=== PATIENT | female | born 1960 | race Caucasian/White ===

== ENCOUNTER 2020-09-03 08:40 | Outpatient (REF) | payer BC, SELFPAY ==
--- NOTE | 2020-09-03 | MM_ITS ---
EXAMINATION: MM SCREENING DIGITAL BREAST TOMOSYNTHESIS, BILATERAL CLINICAL INFORMATION: Screening. Asymptomatic. The lifetime risk of breast cancer based on the Tyrer-Cuzick Model is 5.7%. COMPARISON: Mammography: June 15, 2019 and studies dating back to November 12, 2011 TECHNIQUE: Digital breast tomosynthesis is performed in both the craniocaudal and mediolateral oblique views along with computer-aided detection (CAD). Synthesized 2D images are generated from the tomosynthesis. FINDINGS: The breasts are heterogeneously dense, which may obscure small masses (ACR BI-RADS breast composition Category c). There are no significant masses, abnormal calcifications, or other abnormalities. MM/MM tomosynthesis screening BI IMPRESSION: There are no significant changes from prior study. ASSESSMENT: BI-RADS 1: Negative RECOMMENDATION: Routine annual mammography screening. This patient's information was entered into a reminder system with a target due date for their next mammogram.
== END 2020-09-03 08:41 | disposition home or self-care (01) ==
LOC: HO.MAMMO 08:40
PROVIDERS: PCP Internal Medicine; Visit Provider Internal Medicine
DX: Z12.31 Encounter for screening mammogram for malignant neoplasm of breast (principal)
CPT/HCPCS: 77063; 77067

== ENCOUNTER 2020-11-23 11:35 | Outpatient (REF) | payer BC, SELFPAY ==
[2020-11-23 13:31] LABS: MANUAL DIFF FLAG NO
[2020-11-23 13:36] LABS: Basophils Absolute Auto 0.1 X10*3/uL (0.0-0.2); Basophils Percent Auto 0.9 % (0-2); Eosinophils Absolute Auto 0.1 X10*3/uL (0.0-0.4); Eosinophils Percent Auto 2.1 % (0-4); Hematocrit 41.9 % (37-47); Hemoglobin 13.6 g/dl (12.0-16.0); Imm Gran Abs Auto 0.01 X10*3/uL (0.00-0.03); Imm Gran Pct Auto 0.2 % (0.0-0.4); Lymphocytes Absolute Auto 1.8 X10*3/uL (1.2-4.9); Lymphocytes Percent Auto 31.6 % (20-40); Mean Corpuscular HGB Conc 32.5 g/dl (31.0-35.0); Mean Corpuscular Hemoglobin 30.1 pg (27.0-33.0); Mean Corpuscular Volume 92.7 fL (80-98); Mean Platelet Volume 11.8 fL (9.4-12.3); Monocytes Absolute Auto 0.5 X10*3/uL (0.1-1.2); Monocytes Percent Auto 8.2 % (2-11); Neutrophils Absolute Auto 3.2 X10*3/uL (2.0-8.3); Platelet Count 234 X10*3/uL (160-400); Red Blood Count 4.52 X10*6/uL (4.20-5.50); Red Cell Distribution Width 11.4 % (11.0-16.0); White Blood Count 5.6 X10*3/uL (4.8-10.8)
[2020-11-23 13:47] LABS: Estimated Average Glucose 301 mg/dL; Hemoglobin A1c % 12.1 %
[2020-11-23 14:00] LABS: Alanine Aminotransferase 23 U/L (0-31); Albumin Level 4.5 g/dL (3.5-5.0); Alkaline Phosphatase 78 U/L (39-117); Anion Gap 14 (12-20); Aspartate Amino Transferase 16 U/L (5-31); Bilirubin Total 1.1 mg/dL (0.0-1.0); Blood Urea Nitrogen 18 mg/dL (9-16); Calcium 9.9 mg/dL (8.4-10.2); Carbon Dioxide 28 mmol/L (22-29); Chloride 103 mmol/L (96-108); Cholesterol 220 mg/dL; Estimated Glomerular Filt Rate > 60; Glucose Fasting 267 mg/dL (60-99); HDL Cholesterol 81 mg/dL; LDL Cholesterol Calculated 125 mg/dl; Potassium 4.7 mmol/L (3.3-5.1); Sodium 140 mmol/L (135-145); Total Protein 7.1 g/dL (6.5-8.0); Triglycerides 72 mg/dL
[2020-11-23 14:21] LABS: Free T4 (Free Thyroxine) 1.11 ng/dL (0.71-1.85); Thyroid Stimulating Hormone 0.12 uIU/mL (0.32-4.0)
[2020-11-23 14:34] LABS: Creatinine Urine 98.61 mg/dL; Microalbum/Creatinine Ratio Ur 37.5 ug/mg cr
== END 2020-11-23 11:36 | disposition home or self-care (01) ==
LOC: HO.10HDL 11:35
PROVIDERS: Visit Provider Internal Medicine
DX: E11.9 Type 2 diabetes mellitus without complications (principal); E03.9 Hypothyroidism, unspecified; E78.00 Pure hypercholesterolemia, unspecified
CPT/HCPCS: 36415; 80053; 80061; 82043; 83036; 84439; 84443; 85025

== ENCOUNTER → 2021-01-21 07:44 | Outpatient (BNVA) | payer BC, SELFPAY | PROVIDERS: PCP Internal Medicine; Visit Provider Nurse Practitioner Gerontology | DX: E11.65 Type 2 diabetes mellitus with hyperglycemia (principal); E78.00 Pure hypercholesterolemia, unspecified | CPT/HCPCS: 82947 ==

== ENCOUNTER → 2021-02-25 13:49 | Outpatient (BNVA) | payer BC, SELFPAY | PROVIDERS: PCP Internal Medicine; Visit Provider Nurse Practitioner Gerontology | DX: E11.65 Type 2 diabetes mellitus with hyperglycemia (principal); E78.5 Hyperlipidemia, unspecified; E03.9 Hypothyroidism, unspecified; E78.00 Pure hypercholesterolemia, unspecified; Z79.4 Long term (current) use of insulin | CPT/HCPCS: 82947 ==

== ENCOUNTER 2021-02-26 06:36 | Outpatient (REF) | payer BC, SELFPAY ==
[2021-02-26 07:51] LABS: Anion Gap 13 (12-20); Blood Urea Nitrogen 21 mg/dL (9-16); Carbon Dioxide 31 mmol/L (22-29); Chloride 101 mmol/L (96-108); Estimated Glomerular Filt Rate > 60; Glucose Fasting 268 mg/dL (60-99); Potassium 4.6 mmol/L (3.3-5.1); Sodium 140 mmol/L (135-145)
[2021-02-26 07:55] LABS: Estimated Average Glucose 272 mg/dL; Hemoglobin A1c % 11.1 %
[2021-02-26 08:16] LABS: Free T4 (Free Thyroxine) 1.29 ng/dL (0.71-1.85); Thyroid Stimulating Hormone 1.08 uIU/mL (0.32-4.0)
[2021-02-27 20:17] LABS: C Peptide 0.77 ng/mL (0.80-3.85)
[2021-02-27 21:06] LABS: Thyroglobulin Antibodies 3 IU/mL (< or = 1); Thyroid Peroxidase Antibodies 1 IU/mL (<9)
[2021-03-02 18:16] LABS: Glutamic acid decarboxylase Ab <5 IU/mL (<5)
[2021-03-08 00:31] LABS: Islet Cell Antibody Screen NEGATIVE (NEGATIVE)
== END 2021-02-26 06:37 | disposition home or self-care (01) ==
LOC: HO.LAB 06:36
PROVIDERS: PCP Internal Medicine; Visit Provider Nurse Practitioner Gerontology
DX: E11.65 Type 2 diabetes mellitus with hyperglycemia (principal); E03.9 Hypothyroidism, unspecified
CPT/HCPCS: 36415; 80048; 83036; 84439; 84443; 84681; 86255; 86341; 86376; 86800

== ENCOUNTER → 2021-04-09 08:39 | Outpatient (BNVA) | payer BC, SELFPAY | PROVIDERS: PCP Internal Medicine; Visit Provider Nurse Practitioner Gerontology ==

== ENCOUNTER → 2021-07-11 08:14 | Outpatient (BNVA) | payer BC, SELFPAY | PROVIDERS: PCP Internal Medicine; Visit Provider Nurse Practitioner Gerontology | DX: E11.65 Type 2 diabetes mellitus with hyperglycemia (principal); E78.00 Pure hypercholesterolemia, unspecified; E03.9 Hypothyroidism, unspecified | CPT/HCPCS: 82947; 83036 ==

== ENCOUNTER → 2021-09-11 13:45 | Outpatient (BNVA) | payer OTHER, SELFPAY | PROVIDERS: PCP Internal Medicine; Visit Provider Physician Assistant | DX: S89.91XA Unspecified injury of right lower leg, initial encounter (principal); S69.91XA Unspecified injury of right wrist, hand and finger(s), initial encounter; W00.2XXA Other fall from one level to another due to ice and snow, initial encounter | CPT/HCPCS: 73110; 73564; 99203 ==

== ENCOUNTER → 2021-09-13 15:07 | Outpatient (BNVA) | payer OTHER, SELFPAY | PROVIDERS: PCP Internal Medicine; Visit Provider Physician Assistant | DX: S69.91XA Unspecified injury of right wrist, hand and finger(s), initial encounter (principal); S89.91XA Unspecified injury of right lower leg, initial encounter; W00.0XXA Fall on same level due to ice and snow, initial encounter | CPT/HCPCS: 99213 ==

== ENCOUNTER 2021-09-16 15:28 | Outpatient (REF) | payer BC, SELFPAY ==
--- NOTE | ~2021-09-16 | MM_ITS ---
EXAMINATION: MM SCREENING DIGITAL BREAST TOMOSYNTHESIS, BILATERAL CLINICAL INFORMATION: Screening. Asymptomatic. The lifetime risk of breast cancer based on the Tyrer-Cuzick Model is 5%. COMPARISON: Mammography: 09/03/2020, 06/15/2019, 06/01/2018 TECHNIQUE: Digital breast tomosynthesis is performed in both the craniocaudal and mediolateral oblique views along with computer-aided detection (CAD). Synthesized 2D images are generated from the tomosynthesis. FINDINGS: The breasts are heterogeneously dense, which may obscure small masses (ACR BI-RADS breast composition Category c). Parenchymal pattern is similar to prior exams. There is biopsy clip marker again seen posterior 3:00 left breast adjacent to stable nodule. There is also a biopsy clip marker mid upper inner left breast with stable scarring. Neither breast shows interval mass or architectural abnormality or developing density. Scattered parenchymal asymmetries are similar to prior studies. The axilla and skin contours are unremarkable. MM/MM tomosynthesis screening BI IMPRESSION: No significant changes from prior exams. ASSESSMENT: BI-RADS 2: Benign RECOMMENDATION: Routine annual mammography screening. This patient's information was entered into a reminder system with a target due date for their next mammogram.
== END 2021-09-16 15:29 | disposition home or self-care (01) ==
LOC: HO.MAMMO 15:28
PROVIDERS: PCP Internal Medicine; Visit Provider Internal Medicine
DX: Z12.31 Encounter for screening mammogram for malignant neoplasm of breast (principal)
CPT/HCPCS: 77063; 77067

== ENCOUNTER → 2021-09-17 12:50 | Outpatient (BNVA) | payer OTHER, SELFPAY | PROVIDERS: PCP Internal Medicine; Visit Provider Physician Assistant | DX: S80.01XA Contusion of right knee, initial encounter (principal); S60.211A Contusion of right wrist, initial encounter; W00.0XXA Fall on same level due to ice and snow, initial encounter | CPT/HCPCS: 73200; 99213 ==

== ENCOUNTER → 2021-10-01 13:12 | Outpatient (BNVA) | payer OTHER, SELFPAY | PROVIDERS: PCP Internal Medicine; Visit Provider Physician Assistant Medical | DX: S83.91XD Sprain of unspecified site of right knee, subsequent encounter (principal); S63.501D Unspecified sprain of right wrist, subsequent encounter; W00.9XXD Unspecified fall due to ice and snow, subsequent encounter | CPT/HCPCS: 99213 ==

== ENCOUNTER → 2021-10-15 15:04 | Outpatient (BNVA) | payer OTHER, SELFPAY | PROVIDERS: PCP Internal Medicine; Visit Provider Physician Assistant Medical | DX: S63.501D Unspecified sprain of right wrist, subsequent encounter (principal); S63.591D Other specified sprain of right wrist, subsequent encounter; W00.0XXD Fall on same level due to ice and snow, subsequent encounter | CPT/HCPCS: 99213 ==

== ENCOUNTER 2021-10-24 08:30 | Outpatient (RCR) | payer OTHER, BC, SELFPAY ==
--- NOTE | 2021-09-26 16:19 | MHC.OT.OEV ---
[address] [phone] F: [phone] Occupational Therapy Evaluation Diagnosis: Right wrist sprain Date of Onset: 09/10/21 Date of Surgery: Attending Provider: Meme Stover PA-C Prescribed Treatment: Eval and treat. Custom splinting MD Follow Up Appointment: 10/01/21 History of Current Condition: Pt reports a FOOSH and right knee. [facility]en in [facility] the following day. XR neg for fx or dislocation. A brace was issued. Pt wearing at night . Not wearing during the day due to it feeling too big CT scan 09/17/21, neg for fx and dislocation. 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 Current Level of Function and Occupation Self Care, Employment, Leisure: Indep ADL doing heavy work, tight jars, vac.. heavy housework Severe difficult with prepping food Sleep: Wrist pain interrupts sleep, every other night Driving: WNL Vision: Balance: Pain Assessment Pain Score: 8 Pain Scale Used: Numeric (0 - 10) Pain Location and Description: 2-8 right ulnar wrist Achy Aggravating Factors: Wrist rotation, wrist extension, lifting with right Alleviating Factors: Skin and Soft Tissue Assessment Skin and Soft Tissue: Comments: Mild right ulnar styloid effusion Nerve assessment Ulnar Nerve: Not Tested Median Nerve: Not Tested Radial Nerve: Not Tested Comments: Sensory Assessment Temperature: Light Touch: WNL Proprioception: Vibration: Comments: Edema Assessment Upper Extremity: WNL Lower Extremity: Comments: Dexterity Assessment Dexterity: WNL Comments: Special Tests Comments: AROM(PROM) Strength Cervical Cervical Flexion: Cervical Extension: Cervical Lateral Flexion: Cervical Rotation: Comments: Shoulder Flexion: Extension: Abduction: Internal Rotation: External Rotation: Comments: WNL Flexion: Extension: Abduction: Internal Rotation: External Rotation: Comments: Elbow Flexion: Extension: Pronation: Supination: Comments: WNL Flexion: Extension: Pronation: Supination: Comments: Discomfort with forearm rotation end ranges Wrist Flexion: Extension: Ulnar Deviation: Radial Deviation: Comments: WNL Pain with right wrist ext at end range Flexion: Extension: Ulnar Deviation: Radial Deviation: Comments: Thumb Thumb CMC Flexion: Thumb MCP Flexion: Thumb IP Flexion: Radial Abduction: Palmar Abduction: [place] (Kapandji 0-10): Comments: WNL Digits Index MCP: PIP: DIP: Long MCP: PIP: DIP: Ring MCP: PIP: DIP: Small MCP: PIP: DIP: Comments: WNL Gross Grasp: R 40 lb L 45 lb Lateral Pinch: Two-Point Pinch: Three-Jaw Cheo: Comments: Right ulnar wrist pain with furniture finisher helper Dec pain with leukotape ulna support Patient Education Primary Language: Rectifying Operator Required: No Current Knowledge: Minimal, needs reinforcement Teaching Method: Verbal Education Needs Identified on Evaluation: ADL's Exercise Pain How did patient/family demonstrate learning? Patient demonstrates Patient verbalizes Barriers to Learning: None Readiness for Learning: Accepting Who was educated? Patient Comments: Pt reports she is available for OT 1x a wk only at this time Plan of Care Assessment: Pt is a 61 yo female 2 wks, 2 days s/p right wrist sprain due to a fall on black ice. 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 She reports a high level of pain at night at times radiating to her shoulder. She will benefit from some wrist support at work and is agreeable to trial taping and or use or and ulnar gutter splint fabricated today. AROM is normal. Strength is WFL. I anticipate con't improvement with pt plan to protect her wrist as able and con't OT one x a week. She is aware the [facility] is recommending OT 3x wk. STG Duration: 3 wks Short Term Goals: Dec pain at night to low with use of wrist support Demonstrate painfree forearm rotation and wrist ROM Right furniture finisher helper to > 45 lb Resume all homemaking activities with modifications as needed Quick DASH < 30 pts LTG Duration: 6 wks [facility] Goals: Use of wrist splint only for protection as needed Tolerate all work tasks with modifications as needed Painfree right furniture finisher helper >45 lb Quick DASH <15 pts Frequency and Duration: The patient will be seen 3x wk x 3 wks Treatment Plan: Therapeutic Exercise Therapeutic Activity Home Exercise Program Splinting Patient Education ADL Training Ultrasound Fluidotherapy Soft Tissue Mobilization Kinesiotaping Electronically Signed By: Laura Mccullough OT CHT CLT Reviewed/agree with student documentation: N/A Therapist: Please sign and return to therapist, Thank you for your referral.
--- NOTE | 2021-10-04 13:59 | MHC.OT.OEV ---
[address] [phone] F: [phone] Occupational Therapy Evaluation Diagnosis: Right wrist sprain Date of Onset: 09/10/21 Date of Surgery: Attending Provider: Meme Stover PA-C Prescribed Treatment: Eval and treat. Custom splinting MD Follow Up Appointment: 10/01/21 History of Current Condition: Pt reports a FOOSH and right knee. Seen in [facility] the following day. XR neg for fx or dislocation. A brace was issued. Pt wearing at night . Not wearing during the day due to it feeling too big CT scan 09/17/21, neg for fx and dislocation. 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 Current Level of Function and Occupation Self Care, Employment, Leisure: Indep ADL doing heavy work, tight jars, vac.. heavy housework Severe difficult with prepping food Sleep: Wrist pain interrupts sleep, every other night Driving: WNL Vision: Balance: Pain Assessment Pain Score: 8 Pain Scale Used: Numeric (0 - 10) Pain Location and Description: 2-8 right ulnar wrist Achy Aggravating Factors: Wrist rotation, wrist extension, lifting with right Alleviating Factors: Skin and Soft Tissue Assessment Skin and Soft Tissue: Comments: Mild right ulnar styloid effusion Nerve assessment Ulnar Nerve: Not Tested Median Nerve: Not Tested Radial Nerve: Not Tested Comments: Sensory Assessment Temperature: Light Touch: WNL Proprioception: Vibration: Comments: Edema Assessment Upper Extremity: WNL Lower Extremity: Comments: Dexterity Assessment Dexterity: WNL Comments: Special Tests Comments: AROM(PROM) Strength Cervical Cervical Flexion: Cervical Extension: Cervical Lateral Flexion: Cervical Rotation: Comments: Shoulder Flexion: Extension: Abduction: Internal Rotation: External Rotation: Comments: WNL Flexion: Extension: Abduction: Internal Rotation: External Rotation: Comments: Elbow Flexion: Extension: Pronation: Supination: Comments: WNL Flexion: Extension: Pronation: Supination: Comments: Discomfort with forearm rotation end ranges Wrist Flexion: Extension: Ulnar Deviation: Radial Deviation: Comments: WNL Pain with right wrist ext at end range Flexion: Extension: Ulnar Deviation: Radial Deviation: Comments: Thumb Thumb CMC Flexion: Thumb MCP Flexion: Thumb IP Flexion: Radial Abduction: Palmar Abduction: [place] (Kapandji 0-10): Comments: WNL Digits Index MCP: PIP: DIP: Long MCP: PIP: DIP: Ring MCP: PIP: DIP: Small MCP: PIP: DIP: Comments: WNL Gross Grasp: R 40 lb L 45 lb Lateral Pinch: Two-Point Pinch: Three-Jaw Cheo: Comments: Right ulnar wrist pain with fleece tier Dec pain with leukotape ulna support Patient Education Primary Language: Pearler Required: No Current Knowledge: Minimal, needs reinforcement Teaching Method: Verbal Education Needs Identified on Evaluation: ADL's Exercise Pain How did patient/family demonstrate learning? Patient demonstrates Patient verbalizes Barriers to Learning: None Readiness for Learning: Accepting Who was educated? Patient Comments: Pt reports she is available for OT 1x a wk only at this time Plan of Care Assessment: Pt is a 61 yo female 2 wks, 2 days s/p right wrist sprain due to a fall on black ice. 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 She reports a high level of pain at night at times radiating to her shoulder. She will benefit from some wrist support at work and is agreeable to trial taping and or use or and ulnar gutter splint fabricated today. AROM is normal. Strength is WFL. I anticipate con't improvement with pt plan to protect her wrist as able and con't OT one x a week. She is aware the [facility] is recommending OT 3x wk. STG Duration: 3 wks Short Term Goals: Dec pain at night to low with use of wrist support Demonstrate painfree forearm rotation and wrist ROM Right fleece tier to > 45 lb Resume all homemaking activities with modifications as needed Quick DASH < 30 pts LTG Duration: 6 wks Intermediate Goals: Use of wrist splint only for protection as needed Tolerate all work tasks with modifications as needed Painfree right fleece tier >45 lb Quick DASH <15 pts Frequency and Duration: The patient will be seen 3x wk x 3 wks Treatment Plan: Therapeutic Exercise Therapeutic Activity Home Exercise Program Splinting Patient Education ADL Training Ultrasound Fluidotherapy Soft Tissue Mobilization Kinesiotaping Electronically Signed By: Laura Mccullough OT CHT CLT Reviewed/agree with student documentation: N/A Therapist: Please sign and return to therapist, Thank you for your referral.
--- NOTE | 2021-10-24 09:09 | MHC.OT.DC ---
[address] [phone] F: [phone] Occupational Therapy Discharge Note Provider: Meme Stover PA-C Diagnosis: Right wrist sprain Date of Surgery: Date of Evaluation: 09/26/21 Date of Discharge: 10/24/21 Treatments to Date: 3 Cancellations to Date: 0 No Shows to Date: 0 Discharge Status: Achieved Goals Improved Function Independent with HEP Discharge Summary: Right ulnar wrist pain improved, painfree ROM, Corrosion Engineer strength WFL (right 35 lb, left 45 lb), Wt bearing on right hand equal to left. Pt is tolerating all housekeeping work tasks with some modifications and use of Wrist Widget only for work and driving. She is indep with her HEP and self management and should continue to regain right hand strength with her HEP Electronically Signed By: Laura Mccullough OT CHT CLT Reviewed/agree with student documentation: N/A Therapist: Please Sign and return to therapist, thank you for your referral.
== END 2021-10-24 09:10 | disposition home or self-care (01) ==
LOC: HO.OT 08:30
PROVIDERS: PCP Internal Medicine; Visit Provider Physician Assistant Medical
DX: S63.501D Unspecified sprain of right wrist, subsequent encounter (principal)
CPT/HCPCS: 29130; 97110; 97165; 97760

== ENCOUNTER → 2021-10-28 10:59 | Outpatient (BNVA) | payer OTHER, SELFPAY | PROVIDERS: PCP Internal Medicine; Visit Provider Physician Assistant Medical | DX: S69.91XD Unspecified injury of right wrist, hand and finger(s), subsequent encounter (principal); W00.0XXD Fall on same level due to ice and snow, subsequent encounter | CPT/HCPCS: 99213 ==

== ENCOUNTER 2021-10-31 07:22 | Outpatient (REF) | payer OTHER, SELFPAY ==
--- NOTE | ~2021-10-31 | MR_ITS ---
EXAMINATION: MR WRIST WITHOUT CONTRAST, RIGHT CLINICAL INFORMATION: Persistent ulnar aspect pain, fall on outstretched arm. COMPARISON: X-ray of the right wrist 09/11/[address] scan of the right wrist September 2021. TECHNIQUE: MRI of the wrist was performed using routine sequences on a high-field scanner. FINDINGS: SUBCUTANEOUS SOFT TISSUES: Minimal edema along the dorsal ulnar aspect of the wrist. MUSCLES AND TENDONS: Extensor carpi ulnaris: There is mild fusiform enlargement and some increased signal within the intrasubstance portion of the tendon at the level of the ulnar styloid and ulnar groove compatible with tendinosis and minimal interstitial partial tearing. There is edema in the surrounding soft tissues raising the question of additional partial tearing of the overlying subsheath. The tendon does not appear subluxed. Remaining muscles and tendons normal. NEUROVASCULAR STRUCTURES: Normal. TRIANGULAR FIBROCARTILAGE COMPLEX: Normal. INTRAOSSEOUS LIGAMENTS: Normal. BONE AND ARTICULAR CARTILAGE: There is subchondral cystic change noted along the proximal articular surfaces of the lunate and triquetrum at the ulnocarpal joint indicative of focal arthrosis. There are cystic changes within the scaphoid and capitate nonspecific may be enthesopathic related to areas of arthrosis. First carpometacarpal joint: There is nonuniform up to high-grade cartilage loss with marginal osteophytes. Small subchondral cysts. Findings indicative of mald-sa-bhosurwu arthritis. JOINT FLUID VOLUME: Normal. 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 Mild osteoarthritis of the ulnocarpal articulation. A tendinosis and probable minimal partial tearing of the extensor carpi ulnaris tendon. Possible partial tear of the subsheath. No tendon dislocation.
== END 2021-10-31 07:23 | disposition home or self-care (01) ==
LOC: HO.MRI 07:22
PROVIDERS: Visit Provider Physician Assistant Medical
DX: M25.571 Pain in right ankle and joints of right foot (principal)
CPT/HCPCS: 73221

== ENCOUNTER → 2021-11-06 15:10 | Outpatient (BNVA) | payer OTHER, SELFPAY | PROVIDERS: PCP Internal Medicine; Visit Provider Physician Assistant Medical | DX: Z13.89 Encounter for screening for other disorder (principal) ==

== ENCOUNTER → 2021-11-12 12:21 | Outpatient (BNVA) | payer OTHER, SELFPAY | PROVIDERS: PCP Internal Medicine; Visit Provider Physician Assistant | DX: M77.8 Other enthesopathies, not elsewhere classified (principal) | CPT/HCPCS: 99202 ==

== ENCOUNTER → 2021-12-03 12:44 | Outpatient (BNVA) | payer OTHER, SELFPAY | PROVIDERS: PCP Internal Medicine; Visit Provider Orthopaedic Surgery | DX: M77.8 Other enthesopathies, not elsewhere classified (principal) | CPT/HCPCS: 20550; 99212; J1100 ==

== ENCOUNTER 2021-12-27 15:10 | Outpatient (REF) | payer BC, SELFPAY ==
[2021-12-27 15:41] LABS: MANUAL DIFF FLAG NO
[2021-12-27 16:08] LABS: Basophils Percent Auto 0.3 % (0-2); Eosinophils Percent Auto 0.4 % (0-4); Hematocrit 43.2 % (37.0-47.0); Hemoglobin 13.7 g/dl (12.0-16.0); Imm Gran Abs Auto 0.01 X10*3/uL (0.00-0.03); Imm Gran Pct Auto 0.1 % (0.0-0.4); Lymphocytes Absolute Auto 1.4 X10*3/uL (1.2-4.9); Lymphocytes Percent Auto 19.8 % (20-40); Mean Corpuscular HGB Conc 31.7 g/dl (31.0-35.0); Mean Corpuscular Hemoglobin 29.5 pg (27.0-33.0); Mean Corpuscular Volume 93.1 fL (80.0-98.0); Mean Platelet Volume 11.6 fL (9.4-12.3); Monocytes Absolute Auto 0.7 X10*3/uL (0.1-1.2); Monocytes Percent Auto 10.2 % (2-11); Neutrophils Absolute Auto 4.7 x10*3/uL (2.0-8.3); Neutrophils Percent Auto 69.2 % (45-73); Platelet Count 253 X10*3/uL (160-400); Red Blood Count 4.64 X10*6/uL (4.20-5.50); Red Cell Distribution Width 12.4 % (11.0-16.0); White Blood Count 6.9 X10*3/uL (4.8-10.8)
[2021-12-27 16:23] LABS: Estimated Average Glucose 298 mg/dL
[2021-12-27 16:29] LABS: Influenza A PCR NEGATIVE (Negative); Influenza B PCR NEGATIVE (Negative); Resp Syncy Virus RNA Qual PCR NEGATIVE (Negative); SARS COV2 PCR INHOUSE POSITIVE (Negative)
[2021-12-27 16:43] LABS: Alanine Aminotransferase 28 U/L (0-31); Albumin Level 4.2 g/dL (3.5-5.0); Alkaline Phosphatase 88 U/L (39-117); Anion Gap 15 (12-20); Aspartate Amino Transferase 17 U/L (5-31); Bilirubin Total 1.2 mg/dL (0.0-1.0); Blood Urea Nitrogen 19 mg/dL (9-16); Calcium 9.7 mg/dL (8.4-10.2); Carbon Dioxide 27 mmol/L (22-29); Chloride 99 mmol/L (96-108); Estimated Glomerular Filt Rate 45; Potassium 5.6 mmol/L (3.3-5.1); Sodium 135 mmol/L (135-145); Total Protein 7.3 g/dL (6.5-8.0)
[2021-12-27 17:59] LABS: Glucose Random 530 mg/dL (60-115)
== END 2021-12-27 15:11 | disposition home or self-care (01) ==
LOC: HO.LAB 15:10
PROVIDERS: PCP Internal Medicine; Visit Provider Internal Medicine
DX: Z20.822 Contact with and (suspected) exposure to COVID-19 (principal); J02.9 Acute pharyngitis, unspecified; E11.9 Type 2 diabetes mellitus without complications; M54.2 Cervicalgia
CPT/HCPCS: 0241U; 36415; 80053; 83036; 85025

== ENCOUNTER → 2022-05-13 15:26 | Outpatient (BNVA) | payer BC, SELFPAY | PROVIDERS: PCP Internal Medicine; Visit Provider Orthopaedic Surgery | DX: M77.8 Other enthesopathies, not elsewhere classified (principal) | CPT/HCPCS: 20550; J1100 ==

== ENCOUNTER 2022-06-05 13:30 | Outpatient (RCR) | payer BC, SELFPAY ==
--- NOTE | 2022-05-22 14:53 | MHC.OT.EP ---
[address] [phone] Occupational Therapy Plan of Care Date of Evaluation: 05/22/22 Diagnosis: Right wrist tendonitis Assessment: Pt. is a 62 y/o female who sustained a slip and fall in Sep 2021 resulting in right wrist ECU tendonitis. She did have a steroid injection in December without much relief. She received a second injection last week and reports slight decrease in pain. Her ROM is WFL's except some tightness with radial deviation. 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 A 40.9% limitation is reported per the Quick DASH assessment. Pt. would benefit from skilled OT services to address noted barriers and assist in return to PLOF. Frequency and Duration: The patient will be seen 2x/wk for 6 weeks Short Term Goals: Decrease R wrist pain <2/10 with activity IND with joint protection techniques and activity modification Improve right gross grasp by 5# IND with HEP Long-Term Goals: Pain free with BADL's/IADL's Gross grasp >50# IND with progression of HEP Quick DASH <15% Treatment Plan: Therapeutic Exercise Therapeutic Activity Home Exercise Program Patient Education Ultrasound Paraffin Fluidotherapy MHP Cold Packs Soft Tissue Mobilization Kinesiotaping Electronically Signed By: Janelle Thakur MS OTR/L Please Sign and return to therapist. Thank you once again for your referral.
--- NOTE | 2022-08-13 10:54 | MHC.OT.DC ---
[address] [phone] F: [phone] Occupational Therapy Discharge Note Provider: Adeola Castellanos Diagnosis: Right wrist tendonitis Date of Surgery: Date of Evaluation: 05/22/22 Date of Discharge: Treatments to Date: 3 Cancellations to Date: No Shows to Date: Discharge Status: Improved Function Independent with HEP Discharge Summary: Pt. reports pain is minimal 08/12. Pain with supination mostly. Issued yellow t-putty for strengthening at home. Will re-assess next visit. 08/13 Pt is being discharged from OT services. Did not follow up with future appointments, although was progressing towards LTG's. Electronically Signed By: Janelle Thakur MS OTR/L Reviewed/agree with student documentation: Therapist: Please Sign and return to therapist, thank you for your referral.
== END 2022-08-13 10:54 | disposition home or self-care (01) ==
LOC: HO.OT 13:30
PROVIDERS: PCP Internal Medicine; Visit Provider Orthopaedic Surgery
DX: M77.8 Other enthesopathies, not elsewhere classified (principal)
CPT/HCPCS: 97110; 97165

== ENCOUNTER 2022-07-30 06:21 | Outpatient (REF) | payer BC, SELFPAY ==
[2022-07-30 06:26] LABS: MANUAL DIFF FLAG NO
[2022-07-30 07:27] LABS: Basophils Percent Auto 0.6 % (0-2); Eosinophils Absolute Auto 0.2 X10*3/uL (0.0-0.4); Eosinophils Percent Auto 3.3 % (0-4); Hematocrit 42.4 % (37.0-47.0); Hemoglobin 13.6 g/dl (12.0-16.0); Imm Gran Abs Auto 0.01 X10*3/uL (0.00-0.03); Imm Gran Pct Auto 0.1 % (0.0-0.4); Lymphocytes Absolute Auto 2.5 X10*3/uL (1.2-4.9); Mean Corpuscular HGB Conc 32.1 g/dl (31.0-35.0); Mean Corpuscular Volume 93.6 fL (80.0-98.0); Mean Platelet Volume 11.5 fL (9.4-12.3); Monocytes Absolute Auto 0.6 X10*3/uL (0.1-1.2); Neutrophils Absolute Auto 3.5 x10*3/uL (2.0-8.3); Platelet Count 243 X10*3/uL (160-400); Red Blood Count 4.53 X10*6/uL (4.20-5.50); White Blood Count 6.9 X10*3/uL (4.8-10.8)
[2022-07-30 07:44] LABS: Estimated Average Glucose 280 mg/dL; Hemoglobin A1c % 11.4 %
[2022-07-30 08:34] LABS: Alanine Aminotransferase 19 U/L (0-31); Albumin Level 4.2 g/dL (3.5-5.0); Alkaline Phosphatase 65 U/L (39-117); Anion Gap 15 (12-20); Aspartate Amino Transferase 15 U/L (5-31); Bilirubin Total 1.2 mg/dL (0.0-1.0); Blood Urea Nitrogen 23 mg/dL (9-16); Calcium 9.3 mg/dL (8.4-10.2); Carbon Dioxide 26 mmol/L (22-29); Chloride 105 mmol/L (96-108); Cholesterol 206 mg/dL; Estimated Glomerular Filt Rate > 60; Free T4 (Free Thyroxine) 0.96 ng/dL (0.71-1.85); Glucose Fasting 222 mg/dL (60-99); HDL Cholesterol 76 mg/dL; LDL Cholesterol Calculated 115 mg/dl; Potassium 4.5 mmol/L (3.3-5.1); Sodium 141 mmol/L (135-145); Thyroid Stimulating Hormone 0.24 uIU/mL (0.32-4.0); Total Protein 6.5 g/dL (6.5-8.0); Triglycerides 79 mg/dL; Vitamin D 25-OH Total 38.9 ng/mL (>30)
[2022-07-30 09:24] LABS: Appearance Urine Turbid; Color Urine Yellow; Glucose Urine UA 500 mg/dL (Negative); Leukocyte Esterase Urine Moderate (2+) (Negative); Nitrite Urine Negative (Negative); Specific Gravity - Urine >= 1.030 (1.005-1.025); UMIC TRIGGER UA YES; Urine Blood Trace (Negative); Urine Ketones Negative (Negative); Urine Protein 30 (1+) mg/dL (Neg-Trace)
[2022-07-30 09:30] LABS: Bacteria Urine 4+ (None Seen); Hyaline Casts Urine 0-2 /LPF (0-2); RBC Urine 0-2 /HPF (0-2); Squamous Epithelial Cell Urine >20 /HPF (0-2); WBC Urine >50 /HPF (0-5)
[2022-07-30 10:00] LABS: Creatinine Urine 273.04 mg/dL
== END 2022-07-30 06:22 | disposition home or self-care (01) ==
LOC: HO.LAB 06:21
PROVIDERS: PCP Internal Medicine; Visit Provider Internal Medicine
DX: Z00.00 Encounter for general adult medical examination without abnormal findings (principal); E11.9 Type 2 diabetes mellitus without complications; E03.9 Hypothyroidism, unspecified; R53.83 Other fatigue; E78.00 Pure hypercholesterolemia, unspecified
CPT/HCPCS: 36415; 80053; 80061; 81001; 81003; 82043; 82306; 83036; 84439; 84443; 85025

== ENCOUNTER 2022-09-23 14:43 | Outpatient (REF) | payer BC, SELFPAY ==
--- NOTE | ~2022-09-23 | MM_ITS ---
EXAMINATION: BONE DENSITOMETRY CLINICAL INDICATION: Menopausal. COMPARISON: None (current study represents initial baseline exam). TECHNIQUE: Using a [employer] DXA System (software version: 13.1) manufactured by [employer], dual-energy x-ray absorptiometry was performed of the lumbar spine and left hip. The images are of good technical quality. Summary results are attached. FINDINGS: AP SPINE L1-L4: BMD 0.907 g/cm2, Z-score -0.8, T-score -2.3, osteopenia. LEFT FEMUR, NECK: BMD 0.927 g/cm2, Z-score 0.6, T-score -0.8, normal. LEFT FEMUR, TOTAL: BMD 0.896 g/cm2, Z-score 0.2, T-score -0.9, normal. IDENTIFIED RISK FACTORS: Menopause. HISTORY OF FRACTURE: None listed. MEDICATIONS: Multivitamin. Vitamin D. MM/XR DEXA axial skeleton IMPRESSION: 1. DIAGNOSIS: Osteopenia based on the lowest T-score value of -2.3 in the lumbar spine applying World Health Organization criteria. 2. 10-YEAR FRACTURE RISK PREDICTION, FRAX: Major osteoporotic fracture (clinical spine, forearm, hip or shoulder) 3.9%. Hip fracture 0.2%. 3. Treatment Recommendations: NOF guidelines recommend consideration for treatment in postmenopausal women and men age 50 and older presenting with the following: -A hip or vertebral (clinical or morphometric) fracture. -T-score less than or equal to -2.5 at the femoral neck or spine after appropriate evaluation to exclude secondary causes. -Low bone mass at the hip or spine and a 10-year fracture probability by FRAX of greater than or equal to 3% for hip fracture or greater than or equal to 20% for major osteoporotic fracture based on the [place] adapted WHO algorithm. 4. Other Recommendations: All treatment decisions require clinical judgment and consideration of individual patient factors, including patient preferences, comorbidities, previous drug use, risk factors not captured in the FRAX model (e.g. frailty, falls, vitamin D deficiency, increased bone turnover, interval significant decline in bone density) and possible under or overestimation of fracture risk by FRAX. Additional medical evaluation for secondary cause of low bone mineral density may be appropriate. FUTURE SCAN RECOMMENDATION: People with diagnosed cases of osteoporosis or at high risk for fracture should have regular bone mineral density tests. For patients eligible for Medicare, routine testing is allowed once every 2 years. The testing frequency can be increased to one year for patients who have rapidly progressing disease, those who are receiving or discontinuing medical therapy to restore bone mass, or have additional risk factors.
--- NOTE | ~2022-09-23 | MM_ITS ---
EXAMINATION: MM SCREENING DIGITAL BREAST TOMOSYNTHESIS, BILATERAL CLINICAL INFORMATION: Screening. Asymptomatic. The lifetime risk of breast cancer based on the Tyrer-Cuzick Model is 5.3%. COMPARISON: Mammography: September 16, 2021 and studies dating back to April 21, 2016 TECHNIQUE: Digital breast tomosynthesis is performed in both the craniocaudal and mediolateral oblique views along with computer-aided detection (CAD). Synthesized 2D images are generated from the tomosynthesis. FINDINGS: The breasts are heterogeneously dense, which may obscure small masses (ACR BI-RADS breast composition Category c). There are no significant masses, abnormal calcifications, or other abnormalities. MM/MM tomosynthesis screening BI IMPRESSION: No significant changes from prior exam. ASSESSMENT: BI-RADS 1: Negative RECOMMENDATION: Routine annual mammography screening. This patient's information was entered into a reminder system with a target due date for their next mammogram.
== END 2022-09-23 14:44 | disposition home or self-care (01) ==
LOC: HO.MAMMO 14:43
PROVIDERS: Visit Provider Internal Medicine
DX: Z12.31 Encounter for screening mammogram for malignant neoplasm of breast (principal); Z13.820 Encounter for screening for osteoporosis; Z78.0 Asymptomatic menopausal state
CPT/HCPCS: 77063; 77067; 77080

== ENCOUNTER 2022-09-23 14:43 | Outpatient (REF) | payer BC, SELFPAY | END 2022-09-23 14:44 | disposition home or self-care (01) | LOC: HO.MAMMO 14:43 | PROVIDERS: PCP Internal Medicine; Visit Provider Internal Medicine | DX: Z13.89 Encounter for screening for other disorder (principal) ==

== ENCOUNTER 2023-09-25 11:57 | Outpatient (REF) | payer BC, SELFPAY ==
--- NOTE | ~2023-09-25 | MM_ITS ---
EXAMINATION: MM SCREENING DIGITAL BREAST TOMOSYNTHESIS, BILATERAL CLINICAL INFORMATION: Screening. Asymptomatic. COMPARISON: Mammography: This study is compared with prior exams dating back to 2019. TECHNIQUE: Digital breast tomosynthesis is performed in both the craniocaudal and mediolateral oblique views along with computer-aided detection (CAD). Synthesized 2D images are generated from the tomosynthesis. FINDINGS: The breasts are heterogeneously dense, which may obscure small masses (ACR BI-RADS breast composition Category c). There are no significant masses, abnormal calcifications, or other abnormalities. There is a biopsy tissue marker in the upper outer quadrant of the left breast associated with a benign, oval mass. There is also a tissue marker in the upper inner quadrant from prior benign percutaneous biopsy. MM/MM tomosynthesis screening BI IMPRESSION: No mammographic evidence of malignancy. ASSESSMENT: BI-RADS BI-RADS 2 - Benign Findings RECOMMENDATION: Routine annual mammography screening. 1 year F/U This examination should not preclude the clinical evaluation of a suspicious palpable abnormality. This patient's information was entered into a reminder system with a target due date for their next mammogram.
== END 2023-09-25 11:58 | disposition home or self-care (01) ==
LOC: HO.MAMMO 11:57
PROVIDERS: PCP Internal Medicine; Visit Provider Internal Medicine
DX: Z12.31 Encounter for screening mammogram for malignant neoplasm of breast (principal)
CPT/HCPCS: 77063; 77067

== ENCOUNTER → 2023-09-25 12:15 | Outpatient (BNV) | payer BC, SELFPAY | PROVIDERS: PCP Internal Medicine; Visit Provider Radiology Diagnostic Radiology | DX: Z12.31 Encounter for screening mammogram for malignant neoplasm of breast (principal) | CPT/HCPCS: 77063; 77067 ==

== ENCOUNTER 2023-10-16 02:44 | Observation (INO) | payer BC, SELFPAY ==
[2023-10-16] VITALS (8 sets, daily range): BP systolic 115–142; BP diastolic 55–68; PULSE 67–82; RESP 12–19; TEMP 36.6–37.1; O2SAT 97–99; BMI 24.8
--- NOTE | ~2023-10-16 | CT_ITS ---
EXAMINATION: CT ANGIOGRAM NECK AND HEAD CLINICAL INFORMATION: Slurred speech. COMPARISON: None available. TECHNIQUE: Contiguous axial CT scan images of the head obtained. CT angiography of the neck and head also obtained after intravenous administration of 85 mL Omnipaque 350. Sagittal and coronal reformatted images also obtained. The degree of stenosis determined by NASCET criteria. This CT examination was performed using dose optimization techniques as appropriate, variously including the following: *Automated exposure control *Adjustment of mA and/or kV according to patient size (this includes techniques or standardized protocols for targeted exams where dose is matched to indication/reason for exam; i.e. extremities or head) *Use of iterative reconstruction technique DLP: 2084 mGy-cm FINDINGS: The lateral, third and fourth ventricles are normally outlined. The cortical sulci and basal cisterns are normally outlined as well. There is no acute territorial defect, hemorrhage or midline shift. The extra-axial spaces are unremarkable. Calvarium: Intact. Maxillofacial sinuses and mastoids: Clear as visualized. CT angiogram of the neck: Aortic arch is normal in appearance. Bovine branching pattern is noted from the aortic arch. The common carotid, internal carotid and external carotid arteries are patent. The left vertebral artery is dominant. Both vertebral arteries are patent. CT angiogram of the head: Intracranial internal carotid arteries, anterior and middle cerebral arteries are patent. The distal vertebral arteries, basilar artery and branches as well as posterior cerebral arteries are also patent. No aneurysm identified. CT/CT angio head neck IMPRESSION: 1. No acute territorial infarct, hemorrhage or midline shift. 2. Unremarkable CT angiogram of the head and neck.
--- NOTE | ~2023-10-16 | MR_ITS ---
EXAMINATION: MR BRAIN WITHOUT CONTRAST CLINICAL INFORMATION: Left hemiparesis COMPARISON: None available. TECHNIQUE: MRI of the brain was obtained using routine sequences without contrast. FINDINGS: No acute intracranial hemorrhage or infarct. Scattered and confluent periventricular and deep white matter T2/FLAIR hyperintensities, nonspecific however commonly seen with small vessel ischemic disease. No midline shift or hydrocephalus. No acute extra-axial fluid collections. The osseous structures are unremarkable. Partially empty sella. The pineal gland and remaining midline structures are unremarkable. No orbital pathology. Mild mucosal thickening of the paranasal sinuses. The mastoid air cells are clear. MR/MR head/brain wo con IMPRESSION: No acute intracranial abnormalities.
--- NOTE | 2023-10-16 02:57 | ECG_ITS ---
Test Reason : WEAKNESS Blood Pressure : / mmHG Vent. Rate : 069 BPM Atrial Rate : 069 BPM P-R Int : 134 ms QRS Dur : 092 ms QT Int : 420 ms P-R-T Axes : 055 067 014 degrees QTc Int : 450 ms Normal sinus rhythm Normal ECG No previous ECGs available Referred By: Almita Aguayo Electronically Signed By:HEMALATHA ALEGRIA MD
[2023-10-16 03:07] LABS: MANUAL DIFF FLAG NO
--- NOTE | 2023-10-16 03:08 | ED.NEUROSD ---
HPI - Neuro Symptoms/Deficit General Chief Complaint: Neuro Symptoms/Deficit Stated Complaint: headache with weakness Time Seen by Provider: 10/16/23 02:47 Source: patient Mode of arrival: EMS Limitations: no limitations History of Present Illness HPI Narrative: 63 yo female with PMH of DM notes about a month ago she woke up and her L side was numb but she ignored it and it went away. Tonight she woke from sleep around midnight and noted 1 hour of slurred speech and L sided numbnes in the arm and leg. She also has a mild headache. She felt too weak to stand up. On arrival here the symptoms were resolved. Not on thinners no prior strokes. Had normal day today. Onset (ago): hour(s) (she thinks between midnight and 1am) Timing confirmed by: family member Location: speech, left arm and left leg History of same: Yes Severity: moderate Quality: numb and tingling Relieving factors: rest Exacerbating factors: none Context: sudden onset On Anticoagulants: No Associated symptoms: headaches Treatments Prior to Arrival: none Related Data Home Medications Medication Instructions Recorded Confirmed levothyroxine 112 mcg tablet 112 mcg PO DAILY 01/21/21 07/11/21 Previous Rx's Medication Instructions Recorded blood sugar diagnostic #150 ea 04/09/21 lancets 33 gauge (OneTouch Delica #100 ea 04/09/21 Lancets) Humalog KwikPen Insulin 100 3 - 7 unit (0.03 - 0.07 mL) subcut 07/11/21 unit/mL subcutaneous (insulin TID #15 mL lispro) insulin glargine 100 unit/mL (3 12 unit (0.12 mL) subcut QPM #15 mL 07/11/21 mL) subcutaneous pen (Lantus Solostar U-100 Insulin) rosuvastatin 10 mg tablet 10 mg PO DAILY #30 tabs 10/08/21 meloxicam 15 mg tablet 15 mg PO DAILY 30 days #30 tabs 11/12/21 pen needle, diabetic 32 gauge x #120 ea 06/30/22 (BD Caroline 2nd Gen Pen Needle) Allergies Allergy/AdvReac Type Severity Reaction Status Date / Time No Known Allergies Allergy Verified 05/13/22 16:04 Review of Systems Review of Systems: Constitutional : No Fever, No Chills, No Fatigue ENT/Mouth : No sore throat, No Rhinorrhea Eyes: No Eye Pain, No Swelling, No Redness Cardiovascular : No Chest Pain, No SOB, No Dyspnea on Exertion Respiratory : No Cough, No Sputum Gastrointestinal : No Nausea, No Vomiting, No Diarrhea, No abdominal Pain Genitourinary : No Dysuria, No Urinary Frequency, No Hematuria, Musculoskeletal : No joint pain, No Myalgias, No Joint Swelling Skin : No Skin Lesions, No rash Neuro : No Weakness, pos Numbness, No Dizziness, positive Headache Psych : No Anxiety/Panic, No Depression All other systems reviewed and are negative [facility] Past Medical History Attestation statement: The following information was validated with the patient. Source: old records reviewed Medical History DM2 (diabetes mellitus, type 2) HLD (hyperlipidemia) Hypothyroidism Surgical History Hx of vein stripping Family History Family History Father Alzheimer disease Mother Alzheimer disease Heart attack Brother Diabetes Brother Diabetes Sister Diabetes Social History Social History Household Members: Spouse Unable to assess alcohol history related to: Unknown Alcohol intake: current Patient Tobacco Use Status: Never used Tobacco Smoked in Last 30 Days: No Use of substances other than those prescribed or required for medical reasons: No Advance Directives: No Advance Directives Information Provided: No Patient : No Current occupational status: employed 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 Oriented X3. No acute distress. Eyes: Pupils equal, round and reactive to light. ENT: Pharynx normal. Neck: Normal inspection. Neck supple. CVS: Normal heart rate and rhythm. Pulses normal. Respiratory: No respiratory distress. Breath sounds normal. Abdomen: Soft and nontender. Skin: Skin warm and dry. Normal skin color. Normal skin turgor. Extremities: No lower extremity edema. No calf ttp Neuro: Oriented X 3. No motor deficit. No sensory deficit. CN2-12 intact Course Course Course Narrative: repeat calls to Radiology for read on CTA Medications Administered Discontinued Medications Generic Name Dose Route Start Last Admin Trade Name Christelle PRN Reason Stop Dose Admin Sodium Chloride 1,000 mls @ 999 mls/hr 10/16/23 03:00 10/16/23 04:12 Ns IV 10/16/23 04:00 Infused .Q1H1M MARTY Infusion Iohexol 70 ml 10/16/23 04:09 10/16/23 04:09 Iohexol 350 Mg/Ml 100 Ml Infus..Btl IV 10/16/23 04:10 70 ml ONCE ONE Administration Medical Decision Making Medical Decision Making [facility] Narrative: 63 yo female with PMH of DM here with c/o resolved slurred speech and L sided numbness also felt too weak to stand at that time symptoms started between 12am and 1am she woke with symptoms, she has a mild headache. At this time possible TIA vs complex migraine. All symptoms have resolved. Will obtain labs, EKG, CTA of head and neck likely admit for TIA workup pending CTA. no symptoms NIH 0 not a candidate for TNK Differential Diagnosis Differential Diagnoses: The differential diagnosis associated with the presentation includes TIA, CVA, complex migraine Admission/Observation Consideration of admission/observation: Escalation of care including admission/observation considered admit for TIA workup Consult Healthcare Provider Management of the patient was discussed with: Hospitalist (will admit) Lab Data [facility] Lab Attestation statement: I reviewed the patient's lab results. 10/16/23 03:03 10/16/23 03:03 Labs: Lab Results 10/16/23 Range/Units 03:03 WBC 8.0 (4.8-10.8) X10*3/uL RBC 4.46 (4.20-5.50) X10*6/uL Hgb 13.6 (12.0-16.0) g/dl Hct 40.6 (37.0-47.0) % MCV 91.0 (80.0-98.0) fL MCH 30.5 (27.0-33.0) pg MCHC 33.5 (31.0-35.0) g/dl RDW 11.8 (11.0-16.0) % Plt Count 244 (160-400) X10*3/uL MPV 10.6 (9.4-12.3) fL Immature Gran % (Auto) 0.4 (0.0-0.4) % Neut % (Auto) 74.3 H (45-73) % Lymph % (Auto) 18.6 L (20-40) % [place]oke % (Auto) 5.8 (2-11) % Eos % (Auto) 0.5 (0-4) % Baso % (Auto) 0.4 (0-2) % Lymph # (Auto) 1.5 (1.2-4.9) X10*3/uL [place] # (Auto) 0.5 (0.1-1.2) X10*3/uL Eos # (Auto) 0.0 (0.0-0.4) X10*3/uL Baso # (Auto) 0.0 (0.0-0.2) X10*3/uL Abs Immat Gran (auto) 0.03 (0.00-0.03) X10*3/uL Absolute Neuts (auto) 5.9 (2.0-8.3) x10*3/uL Absolute Nucleated RBC 0.000 (0.0-0.012) X10*3/uL Nucleated RBC % (auto) 0.0 (0.0-0.2) /100WBC PT 11.0 L (11.1-13.3) SEC INR 0.9 (0.9-1.1) Sodium 144 (135-145) mmol/L Potassium 3.4 (3.3-5.1) mmol/L Chloride 107 (96-108) mmol/L Carbon Dioxide 24 (22-29) mmol/L Anion Gap 16 (12-20) BUN 23 H (9-16) mg/dL Creatinine 0.78 (0.5-1.4) mg/dL Estim Creat Clear Calc 67.1 Estimated GFR > 60 Random Glucose 97 (60-115) mg/dL Calcium 9.6 (8.4-10.2) mg/dL Magnesium 2.0 (1.6-2.6) mg/dL Total Bilirubin 0.8 (0.0-1.0) mg/dL Direct Bilirubin 0.3 (0.0-0.5) mg/dL AST 18 (5-31) U/L ALT 25 (0-31) U/L Alkaline Phosphatase 78 (39-117) U/L Troponin I High Sens < 2.7 (<3.5-17.0) ng/L Total Protein 7.3 (6.5-8.0) g/dL Albumin 4.4 (3.5-5.0) g/dL Lipase 41 (8-78) U/L TSH 0.11 L (0.32-4.0) uIU/mL Free T4 1.20 (0.71-1.85) ng/dL Independent Interpretation I performed an independent interpretation of an: EKG and CT Scan (normal ) Interpretation: Rate: 69 Rhythm: NSR [place]: normal Normal P waves. Normal JUAN. Normal QRS complex. ST T wave : normal no TIGRE qTC: 450 prior studies: no acute ischemia The study has been interpreted contemporaneously by me. . Radiology Impression Discussion of test interpretation with radiology: I have reviewed the radiologist's reading. Independent Historian Clinical information obtained from an independent historian. History obtained from or confirmed by: EMS External Record Review External record reviewed: Inpatient record NIH Stroke Scale Internal: Initial- Upon Arrival Level of Consciousness: Alert Level of Consciousness Questions: Answers both questions correctly Level of Consciousness Commands: Performs both tasks correctly Best Gaze: Normal Visual: No visual loss Facial Palsy: Normal Motor Arm (Right): No drift Motor Arm (Left): No drift Motor Leg (Right): No drift Motor Leg (Left): No drift Limb Ataxia: Absent Sensory: Normal Best Language: No aphasia Dysarthia: Normal Extinction and Inattention: No abnormality Score: 0 Discharge Plan Discharge Clinical Impression: Brain TIA Patient Disposition: Admitted As Inpatient
[2023-10-16 03:09] LABS: Basophils Percent Auto 0.4 % (0-2); Eosinophils Percent Auto 0.5 % (0-4); Hematocrit 40.6 % (37.0-47.0); Hemoglobin 13.6 g/dl (12.0-16.0); Imm Gran Abs Auto 0.03 X10*3/uL (0.00-0.03); Imm Gran Pct Auto 0.4 % (0.0-0.4); Lymphocytes Absolute Auto 1.5 X10*3/uL (1.2-4.9); Lymphocytes Percent Auto 18.6 % (20-40); Mean Corpuscular HGB Conc 33.5 g/dl (31.0-35.0); Mean Corpuscular Hemoglobin 30.5 pg (27.0-33.0); Mean Platelet Volume 10.6 fL (9.4-12.3); Monocytes Absolute Auto 0.5 X10*3/uL (0.1-1.2); Monocytes Percent Auto 5.8 % (2-11); Neutrophils Absolute Auto 5.9 x10*3/uL (2.0-8.3); Neutrophils Percent Auto 74.3 % (45-73); Platelet Count 244 X10*3/uL (160-400); Red Blood Count 4.46 X10*6/uL (4.20-5.50); Red Cell Distribution Width 11.8 % (11.0-16.0)
[2023-10-16] MEDS: 0.9 % Sodium Chloride 1,000 ML 999 ML IV (03:14)
[2023-10-16 03:22] LABS: INTERNATIONAL NORM RATIO 0.9 (0.9-1.1)
[2023-10-16 03:33] LABS: Alanine Aminotransferase 25 U/L (0-31); Albumin Level 4.4 g/dL (3.5-5.0); Alkaline Phosphatase 78 U/L (39-117); Anion Gap 16 (12-20); Aspartate Amino Transferase 18 U/L (5-31); Bilirubin Direct 0.3 mg/dL (0.0-0.5); Bilirubin Total 0.8 mg/dL (0.0-1.0); Blood Urea Nitrogen 23 mg/dL (9-16); Calcium 9.6 mg/dL (8.4-10.2); Carbon Dioxide 24 mmol/L (22-29); Chloride 107 mmol/L (96-108); Creatinine Clr Calc Pharmacy 67.1; Estimated Glomerular Filt Rate > 60; Glucose Random 97 mg/dL (60-115); Lipase 41 U/L (8-78); Potassium 3.4 mmol/L (3.3-5.1); Sodium 144 mmol/L (135-145); Total Protein 7.3 g/dL (6.5-8.0)
[2023-10-16 03:36] LABS: Troponin-I High Sensitivity < 2.7 ng/L (<3.5-17.0)
[2023-10-16 03:47] LABS: TSH reflex Free T4 0.11 uIU/mL (0.32-4.0)
[2023-10-16] MEDS: iohexoL 350 MG/ML 100 ML INFUS..BTL 70 ML IV (04:09)
[2023-10-16] MEDS: Aspirin Enteric Coated 325 MG TABLET.DR PO (07:28)
--- NOTE | 2023-10-16 07:30 | PC.NURSE ---
PT A/O X 4 NO SOB/ARCADIO NOTED SPEAKS IN FULL SENTENCES. NEUROS - WNL. DAUGHTER AT BEDSIDE. PT AWARE OF PLAN OF CARE. WILL CONTINUE TO MONITOR.
--- NOTE | 2023-10-16 08:05 | PHA.MEDREC ---
Pharmacy Consult ? Medication Reconciliation Pharmacy has completed the medication reconciliation. Confirmed medications with patient. Reports that she takes 10 units TID Humalog (insulin Lispro) and 10 units at bedtime of Lantus.
[2023-10-16 08:26] LABS: Appearance Urine Clear; Color Urine Yellow; Glucose Urine UA Negative (Negative); Leukocyte Esterase Urine Moderate (2+) (Negative); Nitrite Urine Negative (Negative); PH 8.5 (5.0-9.0); Specific Gravity - Urine >= 1.030 (1.005-1.025); UMIC TRIGGER UACC YES; Urine Blood Negative (Negative); Urine Ketones Negative (Negative); Urine Protein Negative (Neg-Trace)
[2023-10-16 08:28] LABS: Bacteria Urine None Seen (None Seen); Hyaline Casts Urine 0-2 /LPF (0-2); RBC Urine 0-2 /HPF (0-2); Squamous Epithelial Cell Urine 0-2 /HPF (0-2); UACC Culture Trigger YES
--- NOTE | 2023-10-16 09:40 | P.HPHOSP_ITS ---
History of Present Illness Date of Service: 10/16/23 Chief Complaint: left hemiparesis 63F PMH DM, hld, hypothyroid presented with left hemiparesis. patient reports awaking on day of presentatoin about 1am with slurred speech, left sided upper and lower weakness and numbness. also report hyperflexion of bilateral wrists. reports being foggy about events, says was difficult to move her or understand her. no loss of urine or bowels. symptoms lasted about 1 hr and have totally resolved. in ED CTA head and neck unremarkable. patient states she has had similar episodes twice in past, but never this prolonged or severe. Review of Systems 2 Review of Systems: Yes all other systems are reviewed and are negative [facility] Medical History DM2 (diabetes mellitus, type 2) HLD (hyperlipidemia) Hypothyroidism Family History Father Alzheimer disease Mother Alzheimer disease Heart attack Brother Diabetes Brother Diabetes Sister Diabetes Surgical History Hx of vein stripping Social History Household Members: Spouse Unable to assess alcohol history related to: Unknown Alcohol intake: current Patient Tobacco Use Status: Never used Tobacco Smoked in Last 30 Days: No Use of substances other than those prescribed or required for medical reasons: No Advance Directives: No Advance Directives Information Provided: No Patient : No Current occupational status: employed 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 Glucose (Glucose Gel 15 Gm Gel..Gram.) 15 gm PO Q15M PRN; Protocol PRN Reason: per Hypoglycemia Standing Ord. Insulin Glargine (Insulin Glargine,Hum.Rec.Anlog 100 Unit/Ml 10 Ml Vial) 10 unit SUBCUT BEDTIME MARTY Insulin Human Lispro (Insulin Lispro 100 Unit/Ml 3 Ml Vial) 0 unit SUBCUT QIDACHS MARTY; Protocol Levothyroxine Sodium (Levothyroxine Sodium 112 Mcg Tablet) 112 mcg PO DAILY [facility] Multivitamins/Vitamin C (Multivitamin Tablet) 1 tab PO DAILY [facility] Home Medications Medication Instructions Recorded Confirmed Last Taken Type levothyroxine 112 mcg tablet 112 mcg PO DAILY 01/21/21 10/16/23 10/15/23 History insulin glargine 100 unit/mL (3 10 unit subcut QPM 10/16/23 10/16/23 10/15/23 History mL) subcutaneous pen (Lantus Solostar U-100 Insulin) insulin lispro 100 unit/mL 10 unit subcut TID 10/16/23 10/16/23 10/15/23 History subcutaneous pen (Humalog KwikPen (U-100) Insulin) [id number] carb-vit K 1 tab PO DAILY 10/16/23 10/16/23 10/15/23 History 18 mg iron-400 mcg-500 mg tablet Physical Exam 2 Vital Signs and Narrative: Vital Signs: Last Vital Signs Temp 97.9 F 10/16/23 07:18 Pulse 68 10/16/23 07:18 Resp 16 10/16/23 07:18 BP 117/55 L 10/16/23 07:18 Pulse Ox 97 10/16/23 07:18 O2 Del Method Room Air 10/16/23 07:18 BMI result Body Mass Index 24.8 General: AO X 3, no acute distress Resp: CTA bilateral, no accessory muscles used CVS: S1,S2,RRR GI: soft, non tender, non distended Neuro: motor grossly intact, alert Psych: appropriate affect, appropriate insight Results Labs 10/16/23 03:03 10/16/23 03:03 Labs: Laboratory Results - last 24 hr 10/16/23 10/16/23 03:03 08:19 MCV 91.0 MCH 30.5 MCHC 33.5 RDW 11.8 Plt Count 244 MPV 10.6 Immature Gran % (Auto) 0.4 Neut % (Auto) 74.3 H Lymph % (Auto) 18.6 L [place] % (Auto) 5.8 Eos % (Auto) 0.5 Baso % (Auto) 0.4 Lymph # (Auto) 1.5 [place] # (Auto) 0.5 Eos # (Auto) 0.0 Baso # (Auto) 0.0 Abs Immat Gran (auto) 0.03 Absolute Neuts (auto) 5.9 Absolute Nucleated RBC 0.000 Nucleated RBC % (auto) 0.0 PT 11.0 L INR 0.9 Anion Gap 16 Estim Creat Clear Calc 67.1 Estimated GFR > 60 Random Glucose 97 Calcium 9.6 Magnesium 2.0 Total Bilirubin 0.8 Direct Bilirubin 0.3 AST 18 ALT 25 Alkaline Phosphatase 78 Troponin I High Sens < 2.7 Total Protein 7.3 Albumin 4.4 Lipase 41 TSH 0.11 L Free T4 1.20 Urine Color Yellow Urine Appearance Clear Urine pH 8.5 Ur Specific [place] >= 1.030 H Urine Protein Negative Urine Glucose (UA) Negative Urine Ketones Negative Urine Blood Negative Urine Nitrite Negative Ur Leukocyte Esterase Moderate (2+) H Urine RBC 0-2 Urine WBC 6-10 H Ur Squamous Epith Cells 0-2 Urine Bacteria None Seen Hyaline Casts 0-2 Imaging Radiologist's Impressions: Impressions Head/Neck CTA 10/16/23 04:20 IMPRESSION: 1. No acute territorial infarct, hemorrhage or midline shift. 2. Unremarkable CT angiogram of the head and neck. Assessment and Plan (1) Left hemiparesis: Status: Acute Plan 63F PMH DM, hld, hypothyroid presented with left hemiparesis transient left hemiparesis and parasthesias rule out tia check mri neuro eval asa, statin tele dm insulin hld statin hypothryoid synthroid dvt prophylaxis - lovenox full code Quality Stroke Does the patient have a stroke diagnosis?: No VTE Prior VTE?: No VTE Risk Level:: Medical - moderate - high VTE Device Contraindication: Treatment Not Indicated VTE Drug Contraindication: N/A - Med Ordered
[2023-10-16 09:54] LABS: Cholesterol 186 mg/dL (<200); HDL Cholesterol 79 mg/dL (>40); LDL Cholesterol Calculated 90 mg/dL (<100); Triglycerides 86 mg/dL (<150)
[2023-10-16] MEDS: Levothyroxine Sodium 112 MCG TABLET PO (09:54)
[2023-10-16] MEDS: Multivitamin TABLET 1 TAB PO (09:54)
--- NOTE | 2023-10-16 10:07 | PC.NURSE ---
PHYSICAL THERAPY AT BEDSIDE, PT AWARE OF PLAN OF CARE.
--- NOTE | 2023-10-16 10:14 | PC.NURSE ---
OCCUPATIONAL THERAPIST AT BEDSIDE, PT AWARE OF PLAN OF CARE.
[2023-10-16 13:23] LABS: Glucose, Whole Blood 255 mg/dL (60-115)
[2023-10-16] MEDS: Insulin Lispro 100 UNIT/ML 3 ML VIAL SUBCUT (13:30)
--- NOTE | 2023-10-16 15:51 | PC.NURSE ---
resumed care of patient at 1500, daughter just approached nurse that they want to leave AMA, they do not want to wait for a bed any longer. Dr. Navarrete alerted.
--- NOTE | 2023-10-16 15:58 | P.DS_ITS ---
DS: Providers Provider Date of Service: 10/16/23 Date of admission: 10/16/23 09:37 Primary care physician: Pramod England MD Consults: 10/16/23 09:38 Consult to Neurology Routine Consulting Provider: Mylene Armenta Reason for consultation: left hemiparesis DS: Diagnosis Discharge Diagnosis (1) Left hemiparesis: Status: Acute DS: Summary Hospital Course Hospital Course: from initial hpi: 63F PMH DM, hld, hypothyroid presented with left hemiparesis. patient reports awaking on day of presentatoin about 1am with slurred speech, left sided upper and lower weakness and numbness. also report hyperflexion of bilateral wrists. reports being foggy about events, says was difficult to move her or understand her. no loss of urine or bowels. symptoms lasted about 1 hr and have totally resolved. in ED CTA head and neck unremarkable. patient states she has had similar episodes twice in past, but never this prolonged or severe. hospital course: Patient was observed for recurrent episode of transient left hemiparesis paresthesias. Her MRI was negative for acute CVA. She was treated empirically with aspirin statin, patient was not interested in staying for Neurology evaluation and decided to leave against medical advice. Differential diagnosis includes complicated migraine and seizure, she should follow up outpatient with Neurology. For diabetes was continue insulin. For hyperlipidemia is continue statin. For hypothyroidism was continued on Synthroid. Time Attestation Discharge Coordination Time (in mins): 35 Quality: Safe Use of Opioids Does Pt have an Active Cancer Diagnosis on the Problem List?: No Quality: Stroke Does the patient have a stroke diagnosis?: No Physical Exam Vital Signs: Vital Signs: Last Vital Signs Temp 98.2 F 10/16/23 14:25 Pulse 68 10/16/23 14:25 Resp 19 10/16/23 14:25 BP 131/60 10/16/23 14:25 Pulse Ox 97 10/16/23 14:25 O2 Del Method Room Air 10/16/23 14:25 BMI result Body Mass Index 24.8 General: AO X 3, no acute distress Resp: CTA bilateral, no accessory muscles used CVS: S1,S2,RRR GI: soft, non tender, non distended Neuro: motor grossly intact, alert Psych: appropriate affect, appropriate insight DS: Data Data Completed and Pending Labs on day of discharge: Laboratory Results - last 24 hr 10/16/23 10/16/23 10/16/23 03:03 08:19 13:17 WBC 8.0 RBC 4.46 Hgb 13.6 Hct 40.6 MCV 91.0 MCH 30.5 MCHC 33.5 RDW 11.8 Plt Count 244 MPV 10.6 Immature Gran % (Auto) 0.4 Neut % (Auto) 74.3 H Lymph % (Auto) 18.6 L [place] % (Auto) 5.8 Eos % (Auto) 0.5 Baso % (Auto) 0.4 Lymph # (Auto) 1.5 [place] # (Auto) 0.5 Eos # (Auto) 0.0 Baso # (Auto) 0.0 Abs Immat Gran (auto) 0.03 Absolute Neuts (auto) 5.9 Absolute Nucleated RBC 0.000 Nucleated RBC % (auto) 0.0 PT 11.0 L INR 0.9 Sodium 144 Potassium 3.4 Chloride 107 Carbon Dioxide 24 Anion Gap 16 BUN 23 H Creatinine 0.78 Estim Creat Clear Calc 67.1 Estimated GFR > 60 POC Glucose 255 H Random Glucose 97 Calcium 9.6 Magnesium 2.0 Total Bilirubin 0.8 Direct Bilirubin 0.3 AST 18 ALT 25 Alkaline Phosphatase 78 Troponin I High Sens < 2.7 Total Protein 7.3 Albumin 4.4 Triglycerides 86 Cholesterol 186 LDL Cholesterol, Calc 90 HDL Cholesterol 79 Lipase 41 TSH 0.11 L Free T4 1.20 Urine Color Yellow Urine Appearance Clear Urine pH 8.5 Ur Specific [place] >= 1.030 H Urine Protein Negative Urine Glucose (UA) Negative Urine Ketones Negative Urine Blood Negative Urine Nitrite Negative Ur Leukocyte Esterase Moderate (2+) H Urine RBC 0-2 Urine WBC 6-10 H Ur Squamous Epith Cells 0-2 Urine Bacteria None Seen Hyaline Casts 0-2 Discharge Plan Discharge Anticipated Discharge Date/Time: 10/16/23 15:57 Patient Disposition: Left Against Medical Advice Discharge Diagnosis: migriane vs seizure Referrals: Pramod England MD [Primary Care Provider] - 1 Week Discharge Medications: No Action (DME) blood sugar diagnostic Strip See Rx Instructions .ROUTE .MEDSUPPLY Qty: 150 11RF Rx Instructions: 4 times a day rosuvastatin 10 mg tablet 10 mg PO DAILY Qty: 30 6RF (DME) pen needle, diabetic [BD Caroline 2nd Gen Pen Needle] 32 gauge x 5/32 needle See Rx Instructions .ROUTE .MEDSUPPLY Qty: 120 0RF Rx Instructions: As directed 4X DAILY. insulin lispro [Humalog KwikPen Insulin] 100 unit/mL insulin pen 10 unit subcut TID insulin glargine [Lantus Solostar U-100 Insulin] 100 unit/mL (3 mL) insulin pen 10 unit subcut QPM Women's Multivitamin 18 mg iron-400 mcg-500 mg Tablet 1 tab PO DAILY levothyroxine 112 mcg tablet 112 mcg PO DAILY (DME) lancets [OneTouch Delica Lancets] 33 gauge misc See Rx Instructions .ROUTE .MEDSUPPLY Qty: 100 11RF Rx Instructions: four times a day Discharge Orders: Discharge Order (Routine); Ordered 10/16/23 Ordered By: Avery Navarrete Care Plan Goals: prevent further episodes Health Concerns: left sided weakness and numbness Plan of Treatment: follow up with neurology Assessment: see above
== END 2023-10-16 16:43 | disposition left against medical advice (07) ==
LOC: HO.ED 06:16 → HO.EDOVER 09:46
PROVIDERS: Admitting Provider Internal Medicine; Emergency Provider Emergency Medicine; PCP Internal Medicine; Visit Provider Internal Medicine
DX: G81.94 Hemiplegia, unspecified affecting left nondominant side (principal); R47.81 Slurred speech; R51.9 Headache, unspecified; R53.1 Weakness; E11.9 Type 2 diabetes mellitus without complications; E03.9 Hypothyroidism, unspecified; E78.5 Hyperlipidemia, unspecified; Z53.29 Procedure and treatment not carried out because of patient's decision for other reasons; Z79.899 Other long term (current) drug therapy; Z79.4 Long term (current) use of insulin
CPT/HCPCS: 36415; 70496; 70498; 70551; 80048; 80061; 80076; 81001; 82947; 83690; 83735; 84439; 84443; 84484; 85025; 85610; 87086; 93005; 96360; 97161; 97165; 99222; 99285; Q9967

== ENCOUNTER → 2023-10-16 02:57 | Outpatient (BNV) | payer BC, SELFPAY | PROVIDERS: Admitting Provider Internal Medicine; Emergency Provider Emergency Medicine; PCP Internal Medicine; Visit Provider Internal Medicine Cardiovascular Disease | DX: R53.1 Weakness (principal) | CPT/HCPCS: 93010 ==

== ENCOUNTER → 2023-10-16 03:30 | Outpatient (BNV) | payer BC, SELFPAY | PROVIDERS: Emergency Provider Emergency Medicine; PCP Internal Medicine; Visit Provider Internal Medicine | DX: G81.94 Hemiplegia, unspecified affecting left nondominant side (principal); Z53.29 Procedure and treatment not carried out because of patient's decision for other reasons | CPT/HCPCS: 99236; 99499 ==

== ENCOUNTER 2023-10-20 06:29 | Outpatient (REF) | payer BC, SELFPAY ==
--- NOTE | ~2023-10-20 | XR_ITS ---
EXAMINATION: XR HAND, RIGHT CLINICAL INFORMATION: Pain. COMPARISON: None available. TECHNIQUE: PA, lateral, and oblique views of the right hand. FINDINGS: There is mild bony demineralization. There is a neutral ulnar variance. There is mild osteoarthritic change of the interphalangeal joint of the thumb, the second and fifth distal interphalangeal joints and the second, third and fifth proximal interphalangeal joints. There is mild osteoarthritic change of the first carpometacarpal joint. The proximal and carpal rows are intact. No fracture, dislocation or unusual degenerative change is seen. No abnormal bone erosion is seen. There is no focal soft tissue swelling, gas or foreign body. XR/XR hand RT min 3V IMPRESSION: There are mild osteoarthritic changes of the hand and wrist, as detailed. No fracture or dislocation is seen. There is no abnormal bone erosion.
[2023-10-20 07:53] LABS: Estimated Average Glucose 226 mg/dL; Hemoglobin A1c % 9.5 % (<6.0)
[2023-10-20 08:04] LABS: Creatinine Urine 325.82 mg/dL; Microalbum/Creatinine Ratio Ur 12.8 ug/mg cr (<30)
[2023-10-20 08:09] LABS: Alanine Aminotransferase 28 U/L (0-31); Albumin Level 4.4 g/dL (3.5-5.0); Alkaline Phosphatase 76 U/L (39-117); Anion Gap 13 (12-20); Aspartate Amino Transferase 23 U/L (5-31); Bilirubin Total 1.4 mg/dL (0.0-1.0); Blood Urea Nitrogen 21 mg/dL (9-16); Calcium 9.5 mg/dL (8.4-10.2); Carbon Dioxide 25 mmol/L (22-29); Chloride 109 mmol/L (96-108); Estimated Glomerular Filt Rate > 60; Glucose Random 185 mg/dL (60-115); Potassium 4.3 mmol/L (3.3-5.1); Sodium 143 mmol/L (135-145); Total Protein 7.3 g/dL (6.5-8.0)
[2023-10-20 08:17] LABS: T4 Thyroxine 9.5 ug/dL (4.5-12.0); Thyroid Stimulating Hormone 0.13 uIU/mL (0.32-4.0)
== END 2023-10-20 06:30 | disposition home or self-care (01) ==
LOC: HO.LAB 06:29
PROVIDERS: PCP Internal Medicine; Visit Provider Internal Medicine
DX: M79.641 Pain in right hand (principal); E03.9 Hypothyroidism, unspecified; E11.9 Type 2 diabetes mellitus without complications; Z79.4 Long term (current) use of insulin
CPT/HCPCS: 36415; 73130; 80053; 82043; 82570; 83036; 84436; 84443

== ENCOUNTER 2024-02-27 07:04 | Outpatient (REF) | payer BC, SELFPAY ==
[2024-02-27 07:24] LABS: MANUAL DIFF FLAG NO
[2024-02-27 08:10] LABS: Basophils Percent Auto 0.7 % (0-2); Eosinophils Absolute Auto 0.2 X10*3/uL (0.0-0.4); Eosinophils Percent Auto 3.3 % (0-4); Hematocrit 42.4 % (37.0-47.0); Hemoglobin 14.1 g/dl (12.0-16.0); Imm Gran Abs Auto 0.02 X10*3/uL (0.00-0.03); Imm Gran Pct Auto 0.4 % (0.0-0.4); Lymphocytes Absolute Auto 1.9 X10*3/uL (1.2-4.9); Lymphocytes Percent Auto 32.9 % (20-40); Mean Corpuscular HGB Conc 33.3 g/dl (31.0-35.0); Mean Corpuscular Hemoglobin 30.6 pg (27.0-33.0); Monocytes Absolute Auto 0.5 X10*3/uL (0.1-1.2); Monocytes Percent Auto 8.9 % (2-11); Neutrophils Absolute Auto 3.1 x10*3/uL (2.0-8.3); Neutrophils Percent Auto 53.8 % (45-73); Platelet Count 256 X10*3/uL (160-400); Red Blood Count 4.61 X10*6/uL (4.20-5.50); Red Cell Distribution Width 12.3 % (11.0-16.0); White Blood Count 5.7 X10*3/uL (4.8-10.8)
[2024-02-27 08:22] LABS: Estimated Average Glucose 206 mg/dL; Hemoglobin A1c % 8.8 % (<6.0)
[2024-02-27 08:45] LABS: Alanine Aminotransferase 24 U/L (0-31); Albumin Level 4.6 g/dL (3.5-5.0); Alkaline Phosphatase 87 U/L (39-117); Anion Gap 16 (12-20); Aspartate Amino Transferase 15 U/L (5-31); Bilirubin Total 1.1 mg/dL (0.0-1.0); Blood Urea Nitrogen 20 mg/dL (9-16); Calcium 10.1 mg/dL (8.4-10.2); Carbon Dioxide 26 mmol/L (22-29); Chloride 105 mmol/L (96-108); Cholesterol 202 mg/dL (<200); Estimated Glomerular Filt Rate > 60; Glucose Fasting 226 mg/dL (60-99); HDL Cholesterol 80 mg/dL (>40); LDL Cholesterol Calculated 106 mg/dL (<100); Sodium 142 mmol/L (135-145); Total Protein 7.6 g/dL (6.5-8.0); Triglycerides 80 mg/dL (<150)
[2024-02-27 09:02] LABS: Free T4 (Free Thyroxine) 1.08 ng/dL (0.71-1.85); Thyroid Stimulating Hormone 0.05 uIU/mL (0.32-4.0)
[2024-02-27 09:03] LABS: Creatinine Urine 170.48 mg/dL; Microalbum/Creatinine Ratio Ur 17.5 ug/mg cr (<30)
== END 2024-02-27 07:05 | disposition home or self-care (01) ==
LOC: HO.LAB 07:04
PROVIDERS: PCP Internal Medicine; Visit Provider Internal Medicine
DX: E11.9 Type 2 diabetes mellitus without complications (principal); E78.00 Pure hypercholesterolemia, unspecified; E03.9 Hypothyroidism, unspecified
CPT/HCPCS: 36415; 80053; 80061; 82043; 82570; 83036; 84439; 84443; 85025

== ENCOUNTER 2024-05-18 14:49 | Outpatient (REF) | payer BC, SELFPAY ==
[2024-05-18 17:02] LABS: Free T4 (Free Thyroxine) < 0.42 ng/dL (0.71-1.85); Thyroid Stimulating Hormone 66.59 uIU/mL (0.32-4.0)
== END 2024-05-18 14:50 | disposition home or self-care (01) ==
LOC: HO.LAB 14:49
PROVIDERS: PCP Internal Medicine; Visit Provider Internal Medicine
DX: E03.9 Hypothyroidism, unspecified (principal)
CPT/HCPCS: 36415; 84439; 84443

== ENCOUNTER 2024-06-20 14:49 | Outpatient (REF) | payer BC, SELFPAY ==
[2024-06-20 16:02] LABS: Free T4 (Free Thyroxine) 1.26 ng/dL (0.71-1.85); Thyroid Stimulating Hormone 0.31 uIU/mL (0.32-4.0)
== END 2024-06-20 14:50 | disposition home or self-care (01) ==
LOC: HO.LAB 14:49
PROVIDERS: PCP Internal Medicine; Visit Provider Internal Medicine
DX: E03.9 Hypothyroidism, unspecified (principal)
CPT/HCPCS: 36415; 84439; 84443

== ENCOUNTER 2024-09-28 14:07 | Outpatient (REF) | payer BC, SELFPAY ==
--- OUTSIDE RECORDS SUMMARY | 2024-09-28 17:26 | XMS_ITS ---
Author Organization [facility] Address [address] [place] [address] Care Team Providers Care Security Expert Name Role Phone Pramod England MD Primary Care Provider Jadon Mock Unavailable [phone] ALLERGIES No Known Allergies REASON FOR VISIT Patient presents today for a colon screening MEDICATIONS Medication SIG (Take, Route, Frequency, Duration) Notes Start Date End Date Status Lantus 100 UNIT/ML as directed Subcutaneous in AM Active metFORMIN HCl 500mg Not-Taking Synthroid 200mcg Act mary HumaLOG 10cc in evening Active MoviPrep 100 GM as directed Orally 07/03/2011 Not-Taking SOCIAL HISTORY Tobacco Use: Social History Observation Description Date Details (start date - stop date) Never Smoker NA - NA Sex Assigned At : Social History Observation Description Sex Assigned At Unknown Tobacco Use/Smoking Question Answer Notes Patient is a nonsmoker Alcohol Screen Question Answer Notes Did you have a drink contain ing alcohol in the past year? Yes How often did you have a dri nk containing alcohol in the past year? Monthly or less (1 point) How many drinks did you have on a typical day when you were drinking in the past year? 1 or 2 drinks (0 point) How often did you have 6 or more drinks on one occasion in the past year? Never (0 point) Points 1 Interpretation Negative PROBLEMS Problem Type ICD Code Onset Dates Problem Status W/U Status Risk SNOMED Code Notes Problem Encounter for other preprocedural examination (Z01.818) Active confirmed Pre-procedure evaluation check (416077047) VITAL SIGNS Blood pressure systolic 00 mm Hg 04/12/20 24 Blood pressure diastolic 00 mm Hg 024 Height 63 in 04/12/2024 Weight 140 lbs 04/12/2024 BMI 24.80 kg/m2 04/12/2024 Encounters Encounter Location Date Provider Diagnosis [facility] [address] [place] [address] 04/12/2024 Jadon Teague Colon cancer screeni ng Z12.11 and Encounter for other preprocedural examination Z01.818 ASSESSMENTS Encounter Date Diagnosis Assessment Notes Treatment Notes Treatment Clinical Notes 04/12/2024 Colon cancer screening (ICD-10 - Z12.11) Speak with Dr. England regarding adjustment of your 2 Insulins for the day before and the day of the colonoscopy. 04/12/2024 Encounter for other preprocedural examination (ICD-10 - Z01.818) PLAN OF TREATMENT Treatment Notes Assessment Notes Colon cancer screening Speak with Dr. Henrry ahuja regarding adjustment of your 2 Insulins for the day before and the day of the colonoscopy. Future Test Test Name Order Date COLONOSCOPY 04/12/2024 Next Appt Details Follow Up: prn, Reason: Progress Notes * Examination Category Sub-Category Detail Notes General Examination GENERAL APPEARANCE: pleasant , well nourished, well developed, in no acute distress EYES: sclera non-icteric NECK/THYROID: no cervical lymphade nopathy, neck supple HEART: S1, S2 normal LUNGS: clear to auscultatio n bilaterally ABDOMEN: normal bowel sounds, no guarding or rigidity, no hepatosplenomegaly, no masses palpable, soft, nontender, nondistended. NEUROLOGIC: alert and oriented SKIN: nonjaundiced, no spi yuki angiomata. EXTREMITIES: no edema ORAL CAVITY: mucosa moist
--- OUTSIDE RECORDS SUMMARY | 2024-09-28 17:26 | XMS_ITS ---
Author Organization [facility] Address [address] [place] [address] Care Team Providers Care Document Imaging Specialist Name Role Phone Pramod England MD Primary Care Provider Jadon Mock Unavailable [phone] REASON FOR VISIT screening PROBLEMS Problem Type ICD Code Onset Dates Problem Status W/U Status Risk SNOMED Code Notes Problem Diverticulosis of large intestine without perforation or abscess without bleeding (K57.30) Active confirmed Diverticul ar disease of colon (990129774) Encounters Encounter Location Date Provider [place] [facility] [place] [address] [facility] [phone] 09/02/2024 Jadon Teague Colon cancer scree red Z12.11 ; Diverticulosis of large intestine without perforation or abscess without bleeding K57.30 and Other hemorrhoids K64.8 ASSESSMENTS Encounter Date Diagnosis Assessment Notes Treatment Notes Treatment Clinical Notes 09/02/2024 Colon cancer screening (ICD-10 - Z12.11) 09/02/2024 Diverticulosis of large intestine without perforation or abscess without bleeding (ICD-10 - K57.30) 09/02/2024 Other hemorrhoids (ICD-10 - K64.8) PLAN OF TREATMENT No Information
--- OUTSIDE RECORDS SUMMARY | 2024-09-28 17:26 | XMS_ITS | Patient Health Record ---
Author Organization [facility] Address [address] [place] [address] Care Team Providers Care Ornamental Machine Operator Name Role Phone Pramod England MD Primary Care Provider Jadon Mock Unavailable [phone] ALLERGIES No Known Allergies RESULTS Component Value Reference Range Notes Glucose, Whole Blood Reviewed date:09/02/2024 06:24:11 PM Interpretation: Performing Lab:[facility], [address] [place] [id number] Notes/Report: Glucose, Whole Blood 278 60-115 mg/dL METER # : [id number] Glucose, Whole Blood Reviewed date:09/02/2024 06:24:04 PM Interpretation: Performing Lab:[facility], [address] [place] [id number] Notes/Report: Glucose, Whole Blood 144 60-115 mg/dL METER # : [id number] REASON FOR REFERRAL Referring Provider First Name Pramod Referring Provider Last Name Samanta Referring Provider Speciality Internal M edicine Referred Organization [facility] Referred Provider Jadon Teague Referred Address [address],[place], [place],[address], Referred Provider Specialty Gastroentero logy General Notes Victorina Hooper 024 11:17:41 AM EDT > requested an o blue referral for visit with Dr Teague on 04-12-2024 requested a faxed copy from Dr. England's office Referral Priority Routine MEDICATIONS Medication SIG (Take, Route, Frequency, Duration) Notes Start Date End Date Status Lantus 100 UNIT/ML as directed Subcutaneous in AM Active metFORMIN HCl 500mg Not-Taking Synthroid 200mcg Act mary HumaLOG 10cc in evening Active MoviPrep 100 GM as directed Orally 07/03/2011 Not-Taking IMMUNIZATIONS Vaccine Route Administration Date Status Comme nts Influenza Unknown 05/26/2023 Administered SOCIAL HISTORY Sex Assigned At : Social History Observation Description Sex Assigned At Unknown Alcohol Screen Question Answer Notes Did you [...] W/U Status Risk SNOMED Code Notes Problem Special screening for malignant neoplasms, colon (V76.51) Active confirmed Screening for malignant neoplasm of colon (154896919) Problem Encounter for other preprocedural examination (Z01.818) Active confirmed Pre-procedure evaluation check (206577819) Problem Diverticulosis of large intestine without perforation or abscess without bleeding (K57.30) Active confirmed Diverticul ar disease of colon (994968797) VITAL SIGNS Blood pressure diastolic 00 mm Hg 04/12/2024 Height 63 in 04/12/2024 Blood pressure systolic 00 mm Hg 04/12/2024 Weight 140 lbs 04/12/2024 BMI 24.80 kg/m2 04/12/2024 Encounters Encounter Location Date Provider Diagnosis [facility] Out[place] [address] [place] [phone] 09/02/2024 Jadon Teague Colon cancer screeni ng Z12.11 ; Diverticulosis of large intestine without perforation or abscess without bleeding K57.30 and Other hemorrhoids K64.8 [facility] [address] [place] [address] 04/12/2024 Jadon Teague Colon cancer screeni ng Z12.11 and Encounter for other preprocedural examination Z01.818 ASSESSMENTS Encounter Date Diagnosis Assessment Notes Treatment Notes Treatment Clinical Notes 09/02/2024 Colon cancer screening (ICD-10 - Z12.11) 09/02/2024 Diverticulosis of large intestine without perforation or abscess without bleeding (ICD-10 - K57.30) 04/12/2024 Colon cancer screening (ICD-10 - Z12.11) Speak with Dr. England regarding adjustment of your 2 Insulins for the day before and the day of the colonoscopy. 04/12/2024 Encounter for other preprocedural examination (ICD-10 - Z01.818) 09/02/2024 Other hemorrhoids (ICD-10 - K64.8) PLAN OF TREATMENT Future Test Test Name Order Date COLONOSCOPY 07/03/2011 COLONOSCOPY 04/12/2024 Insurance Providers Payer Name Payer Address Payer Phone Subscriber Number Group Number Insured Name Patient Relationship to Insured Coverage Start Date Coverage End Date [facility] [place] [employer] PROF[employer]AL CLAIMS [address] [place] [address] [id number] BAUTISTA BROWN Self - patient is the insured MEDICAL (GENERAL) HISTORY Medical History History ICD Code Denies PA,DM,CVA,Lung disease,renal dise ase IDDM Hypothyroidism Negative screening colonoscopy in 2011 Heartburn--TUMS prn Surgical History Surgery Date(Month/Year) BTL
== END 2024-09-28 14:08 | disposition home or self-care (01) ==
LOC: HO.MAMMO 14:07
PROVIDERS: PCP Internal Medicine; Visit Provider Internal Medicine
DX: Z12.31 Encounter for screening mammogram for malignant neoplasm of breast (principal)
CPT/HCPCS: 77063; 77067

== ENCOUNTER → 2024-09-28 14:30 | Outpatient (BNV) | payer BC, SELFPAY | PROVIDERS: PCP Internal Medicine; Visit Provider Internal Medicine | DX: Z12.31 Encounter for screening mammogram for malignant neoplasm of breast (principal) | CPT/HCPCS: 77063; 77067 ==

== ENCOUNTER 2025-01-20 11:22 | Outpatient (AMB) | payer BC, SELFPAY ==
--- NOTE | 2025-01-20 11:27 | MHC.PC.OV ---
Vital Signs 01/20/25 11:49 Height 5 ft 3 in Weight 60.328 kg BMI 23.6 BP 130/70 Respiration 14 Pulse 70 Pulse Source Pulse Oximeter Temp 97.4 F Temp Source Temporal Artery Scan Pulse Oximetry (%) 97 Oxygen Delivery Method Room Air Intake Visit Reasons: Annual - see comments Refrigeration Lead Required: No Accompanied by: Self / Same As Patient Allergies Seasonal Allergies Adverse Reaction (Verified 01/20/25 11:48) Unknown Medication List - Last Reconciled 01/20/25 by EDIS Trevizo blood sugar diagnostic 4 times a day insulin glargine (Lantus Solostar U-100 Insulin) 10 units subcut QPM insulin lispro (Humalog KwikPen (U-100) Insulin) 10 units subcut QPM lancets (OneTouch Delica Lancets) four times a day levothyroxine 112 mcg PO DAILY omeprazole 20 mg PO DAILY pen needle, diabetic (BD Caroline 2nd Gen Pen Needle) As directed 4X DAILY. pen needle, diabetic As directed rosuvastatin 10 mg PO DAILY HPI HPI Comments History of Present Illness Details 64-year-old female with history of type 2 diabetes, hypothyroidism, GERD, hyperlipidemia, varicose veins presents to the office today for management of chronic conditions as well as annual physical exam. She currently lives at home with her and feels safe there. 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 She does not exercise regularly secondary to pain as mentioned below but does follow a healthy diet. She only occasionally consumes alcohol several times monthly. She has never been a cigarette smoker. Does not use any illicit substances or marijuana. Last hemoglobin A1c 1 year ago uncontrolled at 8.8%. Has been compliant with 10 units of Lantus nightly as well as lispro. She does feel she is following a diabetic diet Hypothyroidism-on levothyroxine 112 mcg daily. Hyperlipidemia-due for lipid panel. Compliant with rosuvastatin Varicose veins-s/p vein stripping many years ago. Recently, has been experiencing aching in the veins as well as swelling and pain in the right knee without injury. Concerns: R knee pain ongoing x6 months with swelling. Primarily located in the medial joint space and prepatellar area. Worse with walking. Throbbing worse at night. Icing does help otherwise not taking any medications. Difficult to bend the knee. Does also experience significant pain upon waking but also with walking. Pain is also exacerbated on stairs. Denies any instability. No prior history. No improvement with leg elevation Left heel pain ongoing years. Describes as a ripping sensation. Walks a lot and this worsens this. Very painful right when she stands in morning. No neuropathic pain. No injury. Went to PT several years ago which didnt help. Heartburn with nearly anything she eats. Unable to identify any specific triggers. No dysphagia or globus sensation ROS: General: No fevers, malaise, unintentional weight loss HEENT: No blurred vision, diplopia. No sore throat, nasal congestion, rhinorrhea, sinus pain, ear pain Neck - no adenopathy Cardiovascular: No chest pain, palpitations, or leg edema Respiratory: No shortness of breath, wheezing, cough GI: No abdominal pain, nausea, vomiting, diarrhea, constipation, melena, hematochezia. see hpi : No dysuria, hematuria, increased urinary frequency, decreased urinary output MSK: No myalgia, back pain. see hpi Neuro: No headaches, weakness, paresthesias Psych: no depression/anxiery. No AH/VH. No SI/HI Skin: No rashes or lesions EXAM: Constitutional - Awake and Alert, No apparent distress Eyes - PERRLA, EOMI. Anicteric Nose- septum midline, nares clear, no sinus tenderness Mouth/throat- mucosa moist, tongue and uvula midline, no erythema/edema or tonsillar adenopathy. Neck-trachea midline, thyroid symmetric without palpable nodules, no adenopathy Cardiovascular - S1S2, RRR, No edema Respiratory - Normal lung expansion, Normal respiratory effort, No respiratory distress, CTA bilaterally Gastrointestinal - NT / ND; +BS; No rebound or guarding - No CVA tenderness Extremities - no calf tenderness bilaterally, no swelling. tortuous varicosities over the right lower leg with prominent vein in the medial aspect of the right thigh, nontender to palpation Musculoskeletal - Normal inspection. Swelling of the right knee without any notable effusion, warmth, erythema. She does appear to have full range of motion though expresses pain with flexion. Negative Brittany sign or anterior posterior drawer. Pain over the insertion of the Achilles tendon into the calcaneus. Negative Garcia test. Full range of motion. Skin - Warm/Dry Neurological - Alert & oriented x3, CN II-XII in tact, 5/5 strength BUE and BLE Psychological - Appropriate affect PFSH Medical History (Updated 01/20/25 @ 12:15 by EDIS Trevizo) Heartburn DM2 (diabetes mellitus, type 2) HLD (hyperlipidemia) Hypothyroidism Surgical History (Updated 11/23/24 @ 13:58 by Corry Uriostegui) H/O colonoscopy (~09/02/24) Hx of vein stripping Family History Father Alzheimer disease Mother Alzheimer disease Heart attack Brother Diabetes Brother Diabetes Sister Diabetes Social History Household Members: Spouse Are you a primary client care representative to a significant other at home: No Do you presently have visiting nurse or other home services: No Unable to assess alcohol history related to: Unknown Alcohol intake: current Patient Tobacco Use Status: Never used Tobacco Current occupational status: employed 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 1. Little interest or pleasure in doing things: not at all 2. Feeling down, depressed, or hopeless: not at all 3. Trouble falling or staying asleep, or sleeping too much: not at all 4. Feeling tired or having little energy: nearly every day 5. Poor appetite or overeating: not at all 6. Feeling bad about yourself - or that you are a failure or have let yourself or your family down: not at all 7. Trouble concentrating on things, such as reading the newspaper or watching television: not at all 8. Moving or speaking so slowly that other people could have noticed. Or the opposite - being so fidgety or restless that you have been moving around a lot more than usual: not at all 9. Thoughts that you would be better off or of hurting yourself in some way: not at all Total score: 3 Source: Developed by Drs. Jadon Ingram, Karen Ruiz, Juan David Shah and colleagues, with an educational laura from [employer]. Thrive Questionnaire Date Thrive assessed: 01/20/25 I am a: Patient What is your living situation today?: I have a steady place to live Within the past 12 months, did the food you bought not last and you didn't have the money to get more?: Never true Within the past 12 months, did you worry whether your food would run out before you got money to buy more?: Never true Do you have trouble paying for medicines?: No Do you have trouble getting transportation to medical appointments?: No Do you have trouble paying your heating and electricity bill?: No Do you have trouble taking care of your child, family member or friend?: No Do you have trouble with day-to-day activities such as bathing, preparing meals, shopping, managing finances, etc.?: No Are you currently unemployed and looking for a job?: No Are you interested in more education?: No Please select the resources that you would like help with: None THRIVE Score: 0 GUERITA-7 AMB Questionnaire GUERITA-7 Date GUERITA - 7 assessed: 01/20/25 Feeling nervous, anxious, or on edge: 0 = Not at all Not being able to stop or control worryin = Not at all Worrying too much about different things: 0 = Not at all Trouble relaxin = Not at all Being so restless that it is hard to sit still: 0 = Not at all Becoming easily annoyed or irritable: 0 = Not at all Feeling afraid as if something awful might happen: 0 = Not at all Total GUERITA-7 score (0-4 normal; 5-9 mild; 10-14 moderate; 15-21 severe): 0 Source: Developed by Drs. Jadon Ingram, Karen Ruiz, Juan David Shah and colleagues, with an educational laura from [employer]. Physical exam (Primary Care) Vital Signs: Last Vital Signs Temp 97.4 F 01/20/25 11:49 Pulse 70 01/20/25 11:49 Resp 14 01/20/25 11:49 BP 130/70 01/20/25 11:49 Pulse Ox 97 01/20/25 11:49 Oxygen Delivery Method Room Air 01/20/25 11:49 BMI result Body Mass Index 23.6 Tobacco/Smoking Status: Tobacco use Status Patient Tobacco Use Status Never used Tobacco 01/20/25 11:29 PHQ-9: PHQ-9 Score PHQ-9: Total score 3 01/20/25 11:53 Thrive Assessment: Date of Thrive Assessment Date Thrive assessed 01/20/25 01/20/25 11:53 Coding Level of Care Code Est Pt Level 4 (52376) New Pt Prev Care 40-64y(31650) Diagnoses Encounter for routine history and physical examination Z00.00 Hypothyroidism E03.9 Pure hypercholesterolemia E78.00 Hyperlipidemia type: pure hypercholesterolemia Type 2 diabetes mellitus with hyperglycemia, unspecified whether bed bug exterminator insulin use E11.65 Diabetes mellitus longterm insulin use: unspecified bed bug exterminator insulin use status Diabetes mellitus complication status: with hyperglycemia Knee pain, right M25.561 Achilles tendonitis M76.60 Assessment & Plan Assessment & Plan (1) Encounter for routine history and physical examination: Code(s): Z00.00 - Encounter for general adult medical examination without abnormal findings Plan: 64-year-old female for annual physical exam. Plan as below (2) Hypothyroidism: Code(s): E03.9 - Hypothyroidism, unspecified Category: Medical Plan: TSH with reflex free T4 ordered. Continue levothyroxine 112 mcg daily. (3) HLD (hyperlipidemia): Code(s): E78.5 - Hyperlipidemia, unspecified Category: Medical Qualifiers: Hyperlipidemia type: pure hypercholesterolemia Qualified Code(s): E78.00 - Pure hypercholesterolemia, unspecified Plan: Lipid panel ordered. Continue rosuvastatin 10 mg daily. Low-fat diet (4) DM2 (diabetes mellitus, type 2): Code(s): E11.9 - Type 2 diabetes mellitus without complications Category: Medical Qualifiers: Diabetes mellitus longterm insulin use: unspecified bed bug exterminator insulin use status Diabetes mellitus complication status: with hyperglycemia Qualified Code(s): E11.65 - Type 2 diabetes mellitus with hyperglycemia Plan: Previously uncontrolled. Updated hemoglobin A1c ordered. Continue therapies at this time, to be adjusted as needed pending results. (5) Knee pain, right: Code(s): M25.561 - Pain in right knee Category: Medical Plan: X-ray of the right knee ordered. Referral to orthopedics placed for further evaluation and management. Not interested in physical therapy (6) Achilles tendonitis: Code(s): M76.60 - Achilles tendinitis, unspecified leg Category: Medical Plan: X-ray of the right foot ordered to evaluate for any bone spurs that could be contributing to patient's pain. Recommend well-fitting shoes with inserts. Not interested in physical therapy Plan Routine screening labs as ordered below Continue with screening mammograms, Pap smears, colonoscopies Continue following for annual skin exams and use sun protection Annual eye exams Wear seat belt in car Recommend regular exercise and healthy diet Follow up months Orders: Orders Basic Metabolic Panel Today E03.9 - Hypothyroidism, unspecified, E11.65 - Type 2 diabetes mellitus with hyperglycemia, E78.00 - Pure hypercholesterolemia, unspecified, Z00.00 - Encounter for general adult medical examination without abnormal findings Hemoglobin A1c 3 Months .65 - Type 2 diabetes mellitus with hyperglycemia XR foot LT min 3V Today M76.60 - Achilles tendinitis, unspecified leg, M79.672 - Pain in left foot XR knee RT 3V Today M25.561 - Pain in right knee Complete Blood Count Auto Diff Today E03.9 - Hypothyroidism, unspecified, E11.65 - Type 2 diabetes mellitus with hyperglycemia, E78.00 - Pure hypercholesterolemia, unspecified, Z00.00 - Encounter for general adult medical examination without abnormal findings Hemoglobin A1c Today E03.9 - Hypothyroidism, unspecified, .65 - Type 2 diabetes mellitus with hyperglycemia, E78.00 - Pure hypercholesterolemia, unspecified, Z00.00 - Encounter for general adult medical examination without abnormal findings Lipid Panel Today E03.9 - Hypothyroidism, unspecified, E11.65 - Type 2 diabetes mellitus with hyperglycemia, E78.00 - Pure hypercholesterolemia, unspecified, Z00.00 - Encounter for general adult medical examination without abnormal findings Liver Panel Today E03.9 - Hypothyroidism, unspecified, E11.65 - Type 2 diabetes mellitus with hyperglycemia, E78.00 - Pure hypercholesterolemia, unspecified, Z00.00 - Encounter for general adult medical examination without abnormal findings TSH reflex Free T4 Today E03.9 - Hypothyroidism, unspecified, E11.65 - Type 2 diabetes mellitus with hyperglycemia, E78.00 - Pure hypercholesterolemia, unspecified, Z00.00 - Encounter for general adult medical examination without abnormal findings Vitamin D 25-OH Total Today E03.9 - Hypothyroidism, unspecified, E11.65 - Type 2 diabetes mellitus with hyperglycemia, E78.00 - Pure hypercholesterolemia, unspecified, Z00.00 - Encounter for general adult medical examination without abnormal findings Microalbumin, Random (w Creat) 3 Months E11.65 - Type 2 diabetes mellitus with hyperglycemia 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 If symptoms recur, resume medication. Take every morning at least 45 minutes before eating 20 mg PO DAILY 30 caps 0RF Discontinued levothyroxine (Synthroid) Discontinued Reason: Doctor's Order 200 mcg PO DAILY 90 tabs 3RF
--- OUTSIDE RECORDS SUMMARY | 2025-01-20 11:44 | XMS_ITS | Patient Health Record ---
Author Organization [facility] Address [address] [place] [address] Care Team Providers Care Merchant Seaman Name Role Phone Pramod England MD Primary Care Provider Jadon Mock Unavailable [phone] Allergies No Known Allergies Results Component Value Reference Range Notes Glucose, Whole Blood Reviewed date:09/02/2024 06:24:11 PM Interpretation: Performing Lab:[facility], [address] [place] [phone] Notes/Report: Glucose, Whole Blood 278 60-115 mg/dL METER # : [id number] Glucose, Whole Blood Reviewed date:09/02/2024 06:24:04 PM Interpretation: Performing Lab:[facility], [address] [place] [phone] Notes/Report: Glucose, Whole Blood 144 60-115 mg/dL METER # : [id number] Reason For Referral Referring Provider First Name Pramod Referring Provider Last Name Samanta Referring Provider Speciality Internal M edicine Referred Organization [facility] Referred Provider Jadon Teague Referred Address [address],[place], [place],[address], Referred Provider Specialty Gastroentero logy General Notes Victorina Hooper 024 11:17:41 AM EDT > requested an o blue referral for visit with Dr Teague on 04-12-2024 requested a faxed copy from Dr. England's office Referral Priority Routine Medications Medication SIG (Take, Route, Frequency, Duration) Notes Start Date End Date Status Lantus 100 UNIT/ML as directed Subcutaneous in AM Active metFORMIN HCl 500mg Not-Taking Synthroid 200mcg Act mary HumaLOG 10cc in evening Active MoviPrep 100 GM as directed Orally 07/03/2011 Not-Taking Immunizations Vaccine Route Administration Date Status Comme nts Influenza Unknown 05/26/2023 Administered Social History Alcohol Screen Question Answer Notes Did you [...] Never (0 point) Points 1 Interpretation Negative Section Notes: She does not smoke, and drin ks only occasional alcohol She does not smoke, and drin ks only occasional alcohol Problems Problem Type SNOMED Code ICD Code Onset Dates Problem Status W/U Status Risk Notes Problem Special screenin g for malignant neoplasms, colon (V76.51) Active confirmed Problem Pre-procedure evaluation check (703801750) Encounter for other preprocedural examination (Z01.818) Active confirmed Problem Diverticular disease of colon (623277923) Diverticulosis of large intestine without perforation or abscess without bleeding (K57.30) Active confirmed Vital Signs Blood pressure diastolic 00 mm Hg 04/12/2024 Height 63 in 04/12/2024 Blood pressure systolic 00 mm Hg 04/12/2024 Weight 140 lbs 04/12/2024 BMI 24.80 kg/m2 04/12/2024 Encounters Encounter Location Date Provider Diagnosis [facility] [place] [address] [place], [place] [id number] 09/02/2024 Jadon Teague Colon cancer screeni ng Z12.11 ; Diverticulosis of large intestine without perforation or abscess without bleeding K57.30 and Other hemorrhoids K64.8 [facility] [address] [place] [address] 04/12/2024 Jadon Teague Colon cancer screeni ng Z12.11 and Encounter for other preprocedural examination Z01.818 Assessments Encounter Date Diagnosis (ICD Code) Assessment Notes Treatment Notes Treatment Clinical Notes Section Notes 09/02/2024 Colon cancer screening (ICD-10 - Z12.11) 09/02/2024 Diverticulosis of large intestine without perforation or abscess without bleeding (ICD-10 - K57.30) 04/12/2024 Colon cancer screening (ICD-10 - Z12.11) Speak with Dr. England regarding adjustment of your 2 Insulins for the day before and the day of the colonoscopy. Overall, Ana appears quite well. Given her last colonoscopy being over 10 years ago and her excellent clinical appearance, I did recommend a followup colonoscopy for further screening purposes. We did review the rationale for that regard to colon cancer prevention. Full consent was obtained for this, including risks of bleeding and perforation. The procedure will be done monitored anesthesia care. She was given the below instructions regarding adjustment of her medications and I specifically asked her to speak with you about adjustment of her insulins for the day before and the morning of the procedure. Ana was comfortable with this plan. Thank you again for allowing me to participate in Ana's care. I shall continue to keep you advised of her progress. 04/12/2024 Encounter for other preprocedural examination (ICD-10 - Z01.818) Overall, Ana appears quite well. Given her last colonoscopy being over 10 years ago and her excellent clinical appearance, I did recommend a followup colonoscopy for further screening purposes. We did review the rationale for that regard to colon cancer prevention. Full consent was obtained for this, including risks of bleeding and perforation. The procedure will be done monitored anesthesia care. She was given the below instructions regarding adjustment of her medications and I specifically asked her to speak with you about adjustment of her insulins for the day before and the morning of the procedure. Ana was comfortable with this plan. Thank you again for allowing me to participate in Ana's care. I shall continue to keep you advised of her progress. 09/02/2024 Other hemorrhoids (ICD-10 - K64.8) Plan Of Treatment Future Test Test Name Order Date COLONOSCOPY 07/03/2011 COLONOSCOPY 04/12/2024 Insurance Providers Payer Name Payer Address Payer Phone Subscriber Number Group Number Insured Name Patient Relationship to Insured Coverage Start Date Coverage End Date [facility] [address] [place] [address] [id number] AAN BROWN Self - patient is the insured Medical (General) History Medical History History ICD Code Denies [place],DM,CVA,Lung disease,renal dise ase IDDM Hypothyroidism Negative screening colonoscopy in 2011 Heartburn--TUMS prn Surgical History Surgery Date(Month/Year) BTL
[2025-01-20 11:49] VITALS: BP 130/70; PULSE 70; RESP 14; TEMP 36.3; O2SAT 97; BMI 23.6
== END 2025-01-20 12:13 | disposition home or self-care (01) ==
LOC: HO.HMCHD 11:23
PROVIDERS: PCP Internal Medicine; Visit Provider Physician Assistant
DX: Z00.00 Encounter for general adult medical examination without abnormal findings (principal); E11.65 Type 2 diabetes mellitus with hyperglycemia; E78.00 Pure hypercholesterolemia, unspecified; E03.9 Hypothyroidism, unspecified; M25.561 Pain in right knee; M76.61 Achilles tendinitis, right leg

== ENCOUNTER 2025-01-21 | Outpatient (REF) | payer BC, SELFPAY ==
--- NOTE | ~2025-01-21 | XR_ITS ---
CLINICAL HISTORY: M76.60 - Achilles tendinitis, unspecified leg --- Additional Notes or Special Instructions: ?bone spur 3 view left foot Comparison: None provided Findings: There is mild joint space narrowing of the 1st metatarsophalangeal joint. No acute fracture or dislocation is identified. Posterior and plantar calcaneal enthesophytes are noted. Soft tissue structures appear within normal limits. IMPRESSION: 1. Posterior and plantar calcaneal enthesophytes. 2. Mild joint space narrowing of the 1st metatarsophalangeal joint. This document has been electronically signed by: Harley Argueta on 01/23/2025 08:00:48
--- NOTE | ~2025-01-21 | XR_ITS ---
CLINICAL HISTORY: M25.561 - Pain in right knee 3 view right knee Comparison: None provided Findings: Mild medial femorotibial joint space narrowing is present. No acute fracture or dislocation is identified. Small joint effusion is noted. IMPRESSION: 1. Mild medial femorotibial joint space narrowing. 2. Small joint effusion. This document has been electronically signed by: Harley Argueta on 01/23/2025 08:01:51
[2025-01-21 07:31] LABS: MANUAL DIFF FLAG NO
[2025-01-21 07:55] LABS: Basophils Absolute Auto 0.1 X10*3/uL (0.0-0.2); Basophils Percent Auto 0.9 % (0-2); Eosinophils Absolute Auto 0.1 X10*3/uL (0.0-0.4); Eosinophils Percent Auto 1.9 % (0-4); Hematocrit 41.6 % (37.0-47.0); Hemoglobin 13.8 g/dl (12.0-16.0); Imm Gran Abs Auto 0.01 X10*3/uL (0.00-0.03); Imm Gran Pct Auto 0.2 % (0.0-0.4); Lymphocytes Percent Auto 30.8 % (20-40); Mean Corpuscular HGB Conc 33.2 g/dl (31.0-35.0); Mean Corpuscular Volume 90.4 fL (80.0-98.0); Mean Platelet Volume 11.6 fL (9.4-12.3); Monocytes Absolute Auto 0.5 X10*3/uL (0.1-1.2); Monocytes Percent Auto 7.2 % (2-11); Neutrophils Absolute Auto 3.8 x10*3/uL (2.0-8.3); Platelet Count 229 X10*3/uL (160-400); Red Cell Distribution Width 11.9 % (11.0-16.0); White Blood Count 6.4 X10*3/uL (4.8-10.8)
[2025-01-21 08:12] LABS: Estimated Average Glucose 272 mg/dL; Hemoglobin A1c % 11.1 % (<6.0); Total Hemoglobin (HGBA1C) 3623.0822 umol/L
[2025-01-21 09:07] LABS: Alanine Aminotransferase 24 U/L (0-31); Albumin Level 4.5 g/dL (3.5-5.0); Alkaline Phosphatase 86 U/L (39-117); Anion Gap 13 (12-20); Aspartate Amino Transferase 20 U/L (5-31); Bilirubin Direct 0.4 mg/dL (0.0-0.5); Bilirubin Total 1.3 mg/dL (0.0-1.0); Blood Urea Nitrogen 18 mg/dL (9-16); Calcium 9.3 mg/dL (8.4-10.2); Carbon Dioxide 26 mmol/L (22-29); Chloride 106 mmol/L (96-108); Cholesterol 184 mg/dL (<200); Estimated Glomerular Filt Rate > 60; Glucose Random 324 mg/dL (60-115); HDL Cholesterol 84 mg/dL (>40); LDL Cholesterol Calculated 85 mg/dL (<100); Potassium 4.2 mmol/L (3.3-5.1); Sodium 141 mmol/L (135-145); Triglycerides 76 mg/dL (<150)
[2025-01-21 09:10] LABS: TSH reflex Free T4 0.56 uIU/mL (0.32-4.0); Vitamin D 25-OH Total 42.8 ng/mL (>30)
--- OUTSIDE RECORDS SUMMARY | 2025-01-31 11:27 | XMS_ITS | Patient Health Record ---
Author Organization [facility] Address [address] [place] [address] Care Team Providers Care Photoengraving Helper Name Role Phone Pramod England MD Primary Care Provider Jadon Mock Unavailable [phone] Allergies No Known Allergies Results Component Value Reference Range Notes Glucose, Whole Blood Reviewed date:09/02/2024 06:24:11 PM Interpretation: Performing Lab:[facility], [address] [place] [phone] Notes/Report: Glucose, Whole Blood 278 60-115 mg/dL METER # : [id number] Glucose, Whole Blood Reviewed date:09/02/2024 06:24:04 PM Interpretation: Performing Lab:[facility], [address] [place] [phone] Notes/Report: Glucose, Whole Blood 144 60-115 mg/dL METER # : [id number] Reason For Referral Referring Provider First Name Pramod Referring Provider Last Name Samanta Referring Provider Speciality Internal M edicine Referred Organization [facility] Referred Provider Jadon Teague Referred Address [address],[place], [place],[address], Referred Provider Specialty Gastroentero logy General Notes [...] Problem Status W/U Status Risk Notes Problem Screening for malignant neoplasm of colon (150297862) Special screening for malignant neoplasms, colon (V76.51) Active confirmed Problem Pre-procedure evaluation check (838117369) Encounter for other preprocedural examination (Z01.818) Active confirmed Problem Diverticular disease of colon (088972464) Diverticulosis of large intestine without perforation or abscess without bleeding (K57.30) Active confirmed Vital Signs Blood pressure diastolic 00 mm Hg 04/12/2024 Height 63 in 04/12/2024 Blood pressure systolic 00 mm Hg 04/12/2024 Weight 140 lbs 04/12/2024 BMI 24.80 kg/m2 04/12/2024 Encounters Encounter Location Date Provider Diagnosis [facility] [place] [address] [place] [id number] 09/02/2024 Jadon Teague Colon cancer screeni ng Z12.11 ; Diverticulosis of large intestine without perforation or abscess without bleeding K57.30 and Other hemorrhoids K64.8 [facility] [address] [place] [address] 04/12/2024 Jadon Teague Colon cancer screeni ng [...] Insured Coverage Start Date Coverage End Date [employer] [address] [place] [address] [id number] KEVIN ANA Self - patient is the insured Medical (General) History Medical History History ICD Code Denies [place],DM,CVA,Lung disease,renal dise ase IDDM Hypothyroidism Negative screening colonoscopy in 2011 Heartburn--TUMS prn Surgical History Surgery Date(Month/Year) BTL
--- OUTSIDE RECORDS SUMMARY | 2025-01-31 11:28 | XMS_ITS | Patient Health Record ---
[facility] Organization [facility] Melonie medardo RodriguezAntoine Address [address] [facility] [place] [address] Care Team Providers Care Sql Ssrs Ssis Developer Name Role Phone Pramod England MD Primary Care Provider Unavaila ble Chiara Lyn Unavailable [phone] Reason For Referral No Information Medications Medication SIG (Take, Route, Frequency, Duration) Notes Start Date End Date Status Physical Therapy 3-4x per week for 3- 4 weeks 02/16/2013 Active Feldene 20 MG 1 capsule with food Orally Once a day; Duration: 30 day(s) 12/09/2012 Active Synthroid 200 MCG 1 tablet on an empty stomach in the morning Orally Once a day; Duration: 30 day(s) Active Metformin & Diet Manage Prod 500 MG as directed Orally Active Pravastatin Sodium 40 MG 1 tablet Orally Once a day; Duration: 30 day(s) Active Problems Problem Type SNOMED Code ICD Code Onset Dates Problem Status W/U Status Risk Notes Problem Bursitis (17087532) Bursitis (727.3) Active confirmed Problem Myositis (98083819) Myositis (729.1) Active confirmed Problem Pain in limb (34956974) Pain in Limb (729.5) Active confirmed Problem Plantar fasciitis (141312483) Plantar Fasciitis (728.71) Active confirmed Problem Calcaneal spur (50467554) Calcaneal spur (726.73) Active confirmed Plan Of Treatment Pending Test Test Name Order Date X ray : Foot, left 3V 12/09/2012 X ray : Foot, right 3V 12/09/2012 Insurance Providers Payer Name Payer Address Payer Phone Subscriber Number Group Number Insured Name Patient Relationship to Insured Coverage Start Date Coverage End Date [facility] [address] [place] [address] [id number] Ana Tejeda Self - patient is the insured Medical (General) History Medical History History ICD Code diabetic Surgical History Surgery Date(Month/Year) ear surgery
== END 2025-01-21 00:01 | disposition home or self-care (01) ==
LOC: HO.XRAY
PROVIDERS: PCP Physician Assistant; Visit Provider Physician Assistant
DX: Z00.00 Encounter for general adult medical examination without abnormal findings (principal); E78.00 Pure hypercholesterolemia, unspecified; E11.65 Type 2 diabetes mellitus with hyperglycemia; E03.9 Hypothyroidism, unspecified; M25.561 Pain in right knee; M76.62 Achilles tendinitis, left leg; M79.672 Pain in left foot
CPT/HCPCS: 36415; 73562; 73630; 80048; 80061; 80076; 82306; 83036; 84443; 85025

== ENCOUNTER → 2025-01-21 07:31 | Outpatient (BNV) | payer BC, SELFPAY | PROVIDERS: PCP Physician Assistant; Visit Provider Radiology Vascular & Interventional Radiology | DX: M25.461 Effusion, right knee (principal); M77.32 Calcaneal spur, left foot | CPT/HCPCS: 73562; 73630 ==

== ENCOUNTER 2025-02-27 09:13 | Outpatient (REF) | payer BC, SELFPAY ==
--- NOTE | ~2025-02-27 | XR_ITS ---
EXAMINATION: XR KNEE, RIGHT CLINICAL INFORMATION: M25.569 - Pain in unspecified knee COMPARISON: January 21, 2025 TECHNIQUE: AP bilateral standing, sunrise, and lateral views of the right knee. FINDINGS: There is mild narrowing of the medial and lateral joint spaces. There is faint linear calcification involving the surface of the patellar cartilage with moderate thinning of lateral patellar articular cartilage consistent with chondrocalcinosis. Small amount joint fluid is visible. Intercondylar tubercles are peaked. There is a marginal osteophyte involving the underside of the medial femoral condyle. There are marginal spurs involving patella, and minimally involving trochlea. 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 Electronically signed by: Feliciano Wagner MD 02/27/2025 02:08 PM EDT
--- OUTSIDE RECORDS SUMMARY | 2025-02-28 09:40 | XMS_ITS | Patient Health Record ---
Author Organization [facility] Address [address] [place] [address] Care Team Providers Care Physical Security Specialist Name Role Phone Samanta (RETIRED) Pramod VIERA Primary Care Provide r Jadon Sutherland Unavailable [phone] Allergies No Known Allergies Results Component Value Reference Range Notes Glucose, Whole Blood Reviewed date:09/02/2024 06:24:11 PM Interpretation: Performing Lab:[facility], [address] [place] [phone] Notes/Report: Glucose, Whole Blood 278 60-115 mg/dL METER # : [id number] Glucose, Whole Blood Reviewed date:09/02/2024 06:24:04 PM Interpretation: Performing Lab:[facility], [address] [place] [phone] Notes/Report: Glucose, Whole Blood 144 60-115 mg/dL METER # : [id number] Reason For Referral No Information Medications Medication [...] Problem Screening for malignant neoplasm of colon (299395982) Special screening for malignant neoplasms, colon (V76.51) Active confirmed Problem Pre-procedure evaluation check (584327703) Encounter for other preprocedural examination (Z01.818) Active confirmed Problem Diverticular disease of colon (317357894) Diverticulosis of large intestine without perforation or abscess without bleeding (K57.30) Active confirmed Vital Signs Blood pressure diastolic 00 mm Hg 04/12/2024 Height 63 in 04/12/2024 Blood pressure systolic 00 mm Hg 04/12/2024 Weight 140 lbs 04/12/2024 BMI 24.80 kg/m2 04/12/2024 Encounters Encounter Location Date Provider Diagnosis [facility] [place] [address] [place] [id number] 09/02/2024 Jadon Teague Colon cancer screeni ng Z12.11 ; Diverticulosis of large intestine without perforation or abscess without bleeding K57.30 and Other hemorrhoids K64.8 [facility] [address] [place] [address] 04/12/2024 Jadon Teague Colon cancer screeni ng [...] Insured Coverage Start Date Coverage End Date [facility] PROFESSIONAL CLAIMS [address] [place] [address] [id number] ANA BROWN Self - patient is the insured Medical (General) History Medical History History ICD Code Denies [place],DM,CVA,Lung disease,renal dise ase IDDM Hypothyroidism Negative screening colonoscopy in 2011 Heartburn--TUMS prn Surgical History Surgery Date(Month/Year) BTL
--- OUTSIDE RECORDS SUMMARY | 2025-02-28 09:40 | XMS_ITS | Patient Health Record ---
Author Organization [facility] Melonie medardo RodriguezPho[place] Address [address] [facility] [place] [address] Care Team Providers Care Lead Web Application Developer Name Role Phone Pramod England MD Primary Care Provider Unavaila ble Chiara Lyn Unavailable [phone] Reason For Referral No Information Medications Medication [...] Status W/U Status Risk Notes Problem Bursitis (17244440) Bursitis (727.3) Active confirmed Problem Myositis (62785379) Myositis (729.1) Active confirmed Problem Pain in limb (25211170) Pain in Limb (729.5) Active confirmed Problem Plantar fasciitis (180917459) Plantar Fasciitis (728.71) Active confirmed Problem Calcaneal spur (68000345) Calcaneal spur (726.73) Active confirmed Plan Of Treatment Pending Test Test Name Order Date X ray : Foot, left 3V 12/09/2012 X ray : Foot, right 3V 12/09/2012 Insurance Providers Payer Name Payer Address Payer Phone Subscriber Number Group Number Insured Name Patient Relationship to Insured Coverage Start Date Coverage End Date [facility] [address] [place] [address] [id number] Ana Tejeda Self - patient is the insured Medical (General) History Medical History History ICD Code diabetic Surgical History Surgery Date(Month/Year) ear surgery
== END 2025-02-27 09:14 | disposition home or self-care (01) ==
LOC: HO.HOSX 09:13
PROVIDERS: Visit Provider Physician Assistant
DX: M17.11 Unilateral primary osteoarthritis, right knee (principal); E11.65 Type 2 diabetes mellitus with hyperglycemia; Z79.4 Long term (current) use of insulin; M25.461 Effusion, right knee; M25.561 Pain in right knee
CPT/HCPCS: 20610; 73562; J1010; J2003

== ENCOUNTER 2025-02-27 13:09 | Outpatient (AMB) | payer BC, SELFPAY ==
--- NOTE | 2025-02-27 13:29 | MHC.OFFVIS ---
Vital Signs 02/27/25 13:42 Height 5 ft 3 in Weight 134 lb BMI 23.7 Handedness Right Intake Visit Reasons: new prob-Pain in right knee Intake Note: Ana is a 64 year old female who presents today for a evaluation of her her right knee pain. Patient reports ongoing pain for about 7 month. She states that her pain is on the anterior aspect of the knee and posterior. Patient notices her pain is worse when she is going up and down the stair, walking for no more than 10 min and getting up from a sitting position. Patient has tried tylenol and NSAIDs for 3 + months with no relief. IMPRESSION: 1. Mild medial femorotibial joint space narrowing. 2. Small joint effusion Allergies Seasonal Allergies Adverse Reaction (Verified 02/27/25 13:42) Unknown HPI HPI new prob-Pain in right knee: Details: Ms. Tejeda is a 64-year-old female who presents to the office today for atraumatic right knee pain. Patient has a past medical history significant for diabetes type 2. She states that she is insulin-dependent. Her sugars do fluctuate but they have been within acceptable range of recent. She reports that the pain has been present for the past 7 months. Pain is located along the anterior aspect of the knee and has a fullness posteriorly. Her pain is mostly worse when front loading the knee doing activity such as going up and down stairs or walking for longer than 10 minutes and getting up from a seated position. Patient has tried Tylenol as well as NSAIDs for over 3 months with no relief. [facility] Medical History (Updated 02/27/25 @ 14:34 by Iris Harris PA-C) Heartburn DM2 (diabetes mellitus, type 2) HLD (hyperlipidemia) Hypothyroidism Surgical History (Updated 11/23/24 @ 13:58 by Corry Uriostegui) H/O colonoscopy (~09/02/24) Hx of vein stripping Family History Father Alzheimer disease Mother Alzheimer disease Heart attack Brother Diabetes Brother Diabetes Sister Diabetes Social History Household Members: Spouse Are you a primary rn care manager to a significant other at home: No Do you presently have visiting nurse or other home services: No Unable to assess alcohol history related to: Unknown Alcohol intake: current Patient Tobacco Use Status: Never used Tobacco Current occupational status: employed 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 Range of motion is 0-110 degrees. Tenderness to palpation along the medial joint line. Pain with patellar grind. Crepitus felt with range of motion. Negative Anatoliy's. NVI. Office Procedures AMB Joint Injection/Aspiration Joint Injection/Aspiration Primary Site: right knee Prep: site was prepped using aseptic technique, ethochloride spray was applied and injection warnings given Injected: 80 mg of, DepoMedrol, with 8 mL of (2% plain lidocaine) and in the joint Approach Used: anterolateral Procedure: The patient tolerated the procedure well, but had some pain with the injection and there was some relief with the local anesthesia Coding 70933 - Large joint Procedure code (CPT) selection complete Assessment & Plan Assessment & Plan (1) Osteoarthritis of right knee: Code(s): M17.11 - Unilateral primary osteoarthritis, right knee Category: Medical (2) DM2 (diabetes mellitus, type 2): Code(s): E11.9 - Type 2 diabetes mellitus without complications Category: Medical Qualifiers: Diabetes mellitus superintendent terminal insulin use: unspecified superintendent terminal insulin use status Diabetes mellitus complication status: with hyperglycemia Qualified Code(s): E11.65 - Type 2 diabetes mellitus with hyperglycemia (3) Effusion, right knee: Code(s): M25.461 - Effusion, right knee Category: Medical Plan Ms. Tejeda is a 64-year-old female who presents to the office today for atraumatic right knee pain. Patient has a past medical history significant for diabetes type 2. She states that she is insulin-dependent. Her sugars do fluctuate but they have been within acceptable range of recent. She reports that the pain has been present for the past 7 months. Pain is located along the anterior aspect of the knee and has a fullness posteriorly. Her pain is mostly worse when front loading the knee doing activity such as going up and down stairs or walking for longer than 10 minutes and getting up from a seated position. Patient has tried Tylenol as well as NSAIDs for over 3 months with no relief. While in the office today we discussed the role of aspiration. However, the patient has no interference with range of motion. Therefore, we have decided to defer on this procedure at this time. The patient was offered a cortisone injection in the right knee with 40 mg of DepoMedrol. The patient was explained the risks, benefits, and alternatives to receiving this injection. After receiving consent for the injection, the patient had the procedure done while in the office today. The patient tolerated the procedure well with no complications. Due to the patient?s history of diabetes, they were instructed to monitor their blood glucose level. The patient was informed that they could see a rise in their numbers and if the numbers became too high, they were instructed to call their PCP. The patient was also informed that they could have facial flushing as a side effect of the injection, but this will pass. X-rays of the right knee which were obtained while in the office today and were reviewed by me, Iris Harris PA-C, revealed osteoarthritis. Follow-up will be PRN, or sooner if needed Orders: Orders XR knee RT 3V Today M25.569 - Pain in unspecified knee Coding Level of Care Code Est Pt Level 4 (94086) Diagnoses Osteoarthritis of right knee M17.11 Type 2 diabetes mellitus with hyperglycemia, unspecified whether superintendent terminal insulin use E11.65 Diabetes mellitus superintendent terminal insulin use: unspecified superintendent terminal insulin use status Diabetes mellitus complication status: with hyperglycemia Effusion, right knee M25.461 CPT Codes Coding - 63350 Large joint: 84038 - Large joint ([id number])
[2025-02-27 13:42] VITALS: BMI 23.7
--- OUTSIDE RECORDS SUMMARY | 2025-02-27 13:52 | XMS_ITS | Patient Health Record ---
Author Organization [facility] Address [address] [place] [address] Care Team Providers Care Tire Setter Name Role Phone Samanta (RETIRED) Pramod VIERA Primary Care Provide r Jadon Sutherland Unavailable [phone] Allergies No Known Allergies Results Component Value Reference Range Notes Glucose, Whole Blood Reviewed date:09/02/2024 06:24:11 PM Interpretation: Performing Lab:[facility], [address] [place] [phone] Notes/Report: Glucose, Whole Blood 278 60-115 mg/dL METER # : [id number] Glucose, Whole Blood Reviewed date:09/02/2024 06:24:04 PM Interpretation: Performing Lab:[facility], [address] [place] [phone] Notes/Report: Glucose, Whole Blood 144 60-115 mg/dL METER # : [id number] Reason For Referral No Information Medications Medication [...] Section Notes: She does not smoke, and elzbieta dominguez only occasional alcohol She does not smoke, and elzbieta dominguez only occasional alcohol Problems Problem Type SNOMED Code ICD Code Onset Dates Problem Status W/U Status Risk Notes Problem Screening for malignant neoplasm of colon (315275213) Special screening for malignant neoplasms, colon (V76.51) Active confirmed Problem Pre-procedure evaluation check (433030159) Encounter for other preprocedural examination (Z01.818) Active confirmed Problem Diverticulosis o f large intestine without perforation or abscess without bleeding (K57.30) Active confirmed Vital Signs Blood pressure diastolic 00 mm Hg 04/12/2024 Height 63 in 04/12/2024 Blood pressure systolic 00 mm Hg 04/12/2024 Weight 140 lbs 04/12/2024 BMI 24.80 kg/m2 04/12/2024 Encounters Encounter Location Date Provider Diagnosis [facility] [place] [address] [place], [place] [id number] 09/02/2024 Jadon Teague Colon cancer screeni ng Z12.11 ; Diverticulosis of large intestine without perforation or abscess without bleeding K57.30 and Other hemorrhoids K64.8 [facility] [address] [place] [address] 04/12/2024 Jadon Teague Colon cancer screeni ng [...] Insured Coverage Start Date Coverage End Date [facility] [address] [place] [address] [id number] KEVINANA Self - patient is the insured Medical (General) History Medical History History ICD Code Denies [place],DM,CVA,Lung disease,renal dise ase IDDM Hypothyroidism Negative screening colonoscopy in 2011 Heartburn--TUMS prn Surgical History Surgery Date(Month/Year) BTL
--- OUTSIDE RECORDS SUMMARY | 2025-02-27 13:52 | XMS_ITS | Patient Health Record ---
Author Organization [facility] Melonie medardo RodriguezNew[place] Address [address] [facility] [place] [address] Care Team Providers Care Technical Sales Advisor Name Role Phone Pramod England MD Primary Care Provider Unavaila ble Chiara Lyn Unavailable [phone] Reason For Referral No Information Medications Medication [...] Status W/U Status Risk Notes Problem Bursitis (07561827) Bursitis (727.3) Active confirmed Problem Myositis (00545933) Myositis (729.1) Active confirmed Problem Pain in limb (16445956) Pain in Limb (729.5) Active confirmed Problem Plantar fasciitis (858711532) Plantar Fasciitis (728.71) Active confirmed Problem Calcaneal spur (13533801) Calcaneal spur (726.73) Active confirmed Plan Of Treatment Pending Test Test Name Order Date X ray : Foot, left 3V 12/09/2012 X ray : Foot, right 3V 12/09/2012 Insurance Providers Payer Name Payer Address Payer Phone Subscriber Number Group Number Insured Name Patient Relationship to Insured Coverage Start Date Coverage End Date [facility] [address] [place] [address] [id number] Ana Tejeda Self - patient is the insured Medical (General) History Medical History History ICD Code diabetic Surgical History Surgery Date(Month/Year) ear surgery
== END 2025-02-27 14:06 | disposition home or self-care (01) ==
PROVIDERS: PCP Physician Assistant; Visit Provider Physician Assistant
DX: M17.11 Unilateral primary osteoarthritis, right knee (principal); E11.65 Type 2 diabetes mellitus with hyperglycemia; M25.461 Effusion, right knee
CPT/HCPCS: 20610; 99214

== ENCOUNTER → 2025-02-27 13:11 | Outpatient (BNV) | payer BC, SELFPAY | PROVIDERS: Visit Provider Radiology Diagnostic Radiology | DX: M25.561 Pain in right knee (principal) | CPT/HCPCS: 73562 ==

== ENCOUNTER 2025-03-27 14:58 | Outpatient (AMB) | payer BC, SELFPAY ==
--- OUTSIDE RECORDS SUMMARY | 2024-09-02 03:30 | XMS_ITS ---
Author Organization [facility] Address [address] [place] [address] Care Team Providers Care Senior Information Security Analyst Name Role Phone Samanta (RETIRED) , Pramod Primary Care Provide r Jadon Sutherland [phone] REASON FOR VISIT screening Problems Problem Type SNOMED Code ICD Code Onset Dates Problem Status W/U Status Risk Notes Problem Diverticulosis o f large intestine without perforation or abscess without bleeding (K57.30) Active confirmed Encounters Encounter Location Date Provider Diagnosis [facility] [place] Out[place] [address] [place] [phone] 09/02/2024 Jadon Teague Colon cancer scree red [...] Of Treatment No Information Progress Notes * KAILYN BROWNADOB: (64 yo F)Acc No.[id number]:09/02/2024 COLON WITH MAC Patient: Lynette LANDRY BAUTISTA Provider: Colette Teague MD :1960 A ge:64 Y S ex:Female Date:09/02/2024 [place] [id number] Pcp:Pramod England (RETIRED )MD Subjective: * Chief [...] 09/02/2024 Generated for Ivanna yuan/Ronald/Hollisitting on: 0 03/27/2025 04:39 PM EDT
--- OUTSIDE RECORDS SUMMARY | 2025-03-27 16:39 | XMS_ITS | Patient Health Record ---
Author Organization [facility] Address [address] [place] [address] Care Team Providers Care Evaluation Engineer Name Role Phone Samanta (RETIRED) Pramod VIERA Primary Care Provide r Jadon Sutherland Unavailable [phone] Allergies No Known Allergies Results Component Value Reference Range Notes Glucose, Whole Blood Reviewed date:09/02/2024 06:24:11 PM Interpretation: Performing Lab:[facility], [address] [place] [phone] Notes/Report: Glucose, Whole Blood 278 60-115 mg/dL METER # : [id number] Glucose, Whole Blood Reviewed date:09/02/2024 06:24:04 PM Interpretation: Performing Lab:[facility], [address] [place] [phone] Notes/Report: Glucose, Whole Blood 144 60-115 mg/dL METER # : [id number] Reason For Referral No Information Medications Medication [...] Problem Screening for malignant neoplasm of colon (704367930) Special screening for malignant neoplasms, colon (V76.51) Active confirmed Problem Pre-procedure evaluation check (176533963) Encounter for other preprocedural examination (Z01.818) Active confirmed Problem Diverticulosis o f large intestine without perforation or abscess without bleeding (K57.30) Active confirmed Vital Signs Blood pressure diastolic 00 mm Hg 04/12/2024 Height 63 in 04/12/2024 Blood pressure systolic 00 mm Hg 04/12/2024 Weight 140 lbs 04/12/2024 BMI 24.80 kg/m2 04/12/2024 Encounters Encounter Location Date Provider Diagnosis [facility] [place] [address] [place], [place] [phone] 09/02/2024 Jadon Teague Colon cancer screeni ng Z12.11 ; Diverticulosis of large intestine without perforation or abscess without bleeding K57.30 and Other hemorrhoids K64.8 [facility] [address] [place] [address] 04/12/2024 Jadon Teague Colon cancer screeni ng [...] Insured Coverage Start Date Coverage End Date [facility] [address] [place] [address] [id number] KEVINANA Self - patient is the insured Medical (General) History Medical History History ICD Code Denies [place],DM,CVA,Lung disease,renal dise ase IDDM Hypothyroidism Negative screening colonoscopy in 2011 Heartburn--TUMS prn Surgical History Surgery Date(Month/Year) BTL
--- OUTSIDE RECORDS SUMMARY | 2025-03-27 16:39 | XMS_ITS | Patient Health Record ---
Author Organization [facility] Melonie medardo RodriguezAntoine Address [address] [facility] [place] [address] Care Team Providers Care Master Merchandiser Name Role Phone Pramod England MD Primary Care Provider Unavaila ble Chiara Lyn Unavailable [phone] Reason For Referral No Information Medications Medication [...] Status W/U Status Risk Notes Problem Bursitis (39683221) Bursitis (727.3) Active confirmed Problem Myositis (21506375) Myositis (729.1) Active confirmed Problem Pain in limb (45119529) Pain in Limb (729.5) Active confirmed Problem Plantar fasciitis (297541534) Plantar Fasciitis (728.71) Active confirmed Problem Calcaneal spur (73660698) Calcaneal spur (726.73) Active confirmed Plan Of Treatment Pending Test Test Name Order Date X ray : Foot, left 3V 12/09/2012 X ray : Foot, right 3V 12/09/2012 Insurance Providers Payer Name Payer Address Payer Phone Subscriber Number Group Number Insured Name Patient Relationship to Insured Coverage Start Date Coverage End Date [facility] [address] [place] [address] [id number] Ana Tejeda Self - patient is the insured Medical (General) History Medical History History ICD Code diabetic Surgical History Surgery Date(Month/Year) ear surgery
== END 2025-03-28 14:02 | disposition home or self-care (01) ==
LOC: HO.HMGAL 14:58
PROVIDERS: PCP Physician Assistant; Visit Provider Registered Nurse Emergency
DX: J30.89 Other allergic rhinitis (principal)
CPT/HCPCS: 95117; 95165

== ENCOUNTER 2025-04-15 07:10 | Outpatient (REF) | payer BC, SELFPAY ==
--- OUTSIDE RECORDS SUMMARY | 2024-09-02 03:30 | XMS_ITS ---
Author Organization [facility] Address [address] [place] [address] Care Team Providers Care Radio Television Technical Director Name Role Phone Samanta (RETIRED) Pramod VIERA Primary Care Provide r Jadon Sutherland Unavailable [phone] REASON FOR VISIT screening Problems Problem Type SNOMED Code ICD Code Onset Dates Problem Status W/U Status Risk Notes Problem Diverticular disease of colon (394911474) Diverticulosis of large intestine without perforation or abscess without bleeding (K57.30) Active confirmed Encounters Encounter Location Date Provider Diagnosis [facility] [place] [facility] [address] [facility] [place] [phone] 09/02/2024 Jadon Teague Colon cancer scree red [...] Notes * SIDNEY BROWNB: (65 yo F)Acc No.[id number]:09/02/2024 COLON WITH MAC Patient: Lynette LANDRY BAUTISTA Provider: Colette Teague MD :1960 A ge:64 Y S ex:Female Date:09/02/2024 Address:[address] [place] [address] , [place], [id number] Pcp:Pramod England (RETIRED )MD Subjective: * Chief [...] 09/02/2024 Generated for Ivanna yuan/Ronald/Hollisitting on: 0 04/15/2025 07:12 AM EDT
--- OUTSIDE RECORDS SUMMARY | 2025-04-15 07:12 | XMS_ITS | Patient Health Record ---
Author Organization [facility] Address [address] [place] [address] Care Team Providers Care Cotton Agent Name Role Phone Samanta (RETIRED) Pramod VIERA Primary Care Provide r Jadon Sutherland Unavailable [phone] Allergies No Known Allergies Results Component Value Reference Range Notes Glucose, Whole Blood Reviewed date:09/02/2024 06:24:11 PM Interpretation: Performing Lab:[facility], [address] [place] [phone] Notes/Report: Glucose, Whole Blood 278 60-115 mg/dL METER # : [id number] Glucose, Whole Blood Reviewed date:09/02/2024 06:24:04 PM Interpretation: Performing Lab:[facility], [address] [place] [phone] Notes/Report: Glucose, Whole Blood 144 60-115 mg/dL METER # : [id number] Reason For Referral No Information Medications Medication [...] Problem Screening for malignant neoplasm of colon (923899888) Special screening for malignant neoplasms, colon (V76.51) Active confirmed Problem Pre-procedure evaluation check (205762332) Encounter for other preprocedural examination (Z01.818) Active confirmed Problem Diverticular disease of colon (979418367) Diverticulosis of large intestine without perforation or abscess without bleeding (K57.30) Active confirmed Encounters Encounter Location Date Provider Diagnosis [facility] [place] [place] Out[place] [address] [place] [id number] 09/02/2024 Jadon Teague Colon cancer scree red [...] Insured Coverage Start Date Coverage End Date [facility] [address] [place] [address] [id number] BAUTISTA BROWN Self - patient is the insured Medical (General) History Medical History History ICD Code Denies [place],DM,CVA,Lung disease,renal dise ase IDDM Hypothyroidism Negative screening colonoscopy in 2011 Heartburn--TUMS prn Surgical History Surgery Date(Month/Year) BTL
--- OUTSIDE RECORDS SUMMARY | 2025-04-15 07:13 | XMS_ITS | Patient Health Record ---
[facility] Organization [facility] Melonie medardo RodriguezAntoine Address [address] [facility] [place] [address] Care Team Providers Care Ed Special Education Teacher Name Role Phone Pramod England MD Primary Care Provider Unavaila ble Chiara Lyn Unavailable [phone] Reason For Referral No Information Medications Medication [...] Status W/U Status Risk Notes Problem Bursitis (62160719) Bursitis (727.3) Active confirmed Problem Myositis (85482447) Myositis (729.1) Active confirmed Problem Pain in limb (75051202) Pain in Limb (729.5) Active confirmed Problem Plantar fasciitis (957458398) Plantar Fasciitis (728.71) Active confirmed Problem Calcaneal spur (06603861) Calcaneal spur (726.73) Active confirmed Plan Of Treatment Pending Test Test Name Order Date X ray : Foot, left 3V 12/09/2012 X ray : Foot, right 3V 12/09/2012 Insurance Providers Payer Name Payer Address Payer Phone Subscriber Number Group Number Insured Name Patient Relationship to Insured Coverage Start Date Coverage End Date [facility] [address] [place] [address] [id number] Ana Tejeda Self - patient is the insured Medical (General) History Medical History History ICD Code diabetic Surgical History Surgery Date(Month/Year) ear surgery
[2025-04-15 08:17] LABS: Hemoglobin A1C 411.8330 umol/L; Total Hemoglobin (HGBA1C) 3572.2097 umol/L
[2025-04-15 09:21] LABS: Microalbum/Creatinine Ratio Ur 52.6 ug/mg cr (<30)
== END 2025-04-15 07:11 | disposition home or self-care (01) ==
LOC: HO.LAB 07:10
PROVIDERS: PCP Physician Assistant; Visit Provider Physician Assistant
DX: E11.65 Type 2 diabetes mellitus with hyperglycemia (principal)
CPT/HCPCS: 36415; 82043; 82570; 83036

== ENCOUNTER 2025-04-17 11:14 | Outpatient (AMB) | payer BC, SELFPAY ==
--- OUTSIDE RECORDS SUMMARY | 2024-09-02 03:30 | XMS_ITS ---
Author Organization [facility] Address [address] [place] [address] Care Team Providers Care Shrimping Boat Captain Name Role Phone Samanta (RETIRED) Pramod VIERA Primary Care Provide r Jadon Sutherland Unavailable [phone] REASON FOR VISIT screening Problems Problem Type SNOMED Code ICD Code Onset Dates Problem Status W/U Status Risk Notes Problem Diverticular disease of colon (584394694) Diverticulosis of large intestine without perforation or abscess without bleeding (K57.30) Active confirmed Encounters Encounter Location Date Provider Diagnosis [facility] [address] [facility] [place] [phone] 09/02/2024 Jadon Teague Colon cancer scree red [...] Notes * SIDNEY BROWNB: (65 yo F)Acc No.[id number]:09/02/2024 COLON WITH MAC Patient: Lynette LANDRY BAUTISTA Provider: Colette Teague MD :1960 A ge:64 Y S ex:Female Date:09/02/2024 Address:[address] [place] [address] , [place], [id number] Pcp:Pramod England (RETIRED )MD Subjective: * Chief Complaints: * 1 . Screening. * Medical History: Objective: * Vitals: Assessment: * Assessment: 1. C olon cancer screening - Z12.11 (Primary) 2 . D iverticulosis of large intestine without perforation or abscess without bleeding - K57.30 3 . O ther hemorrhoids - K64.8 Plan: * Treatment: * Procedure Codes: 4 5378 DIAGNOSTIC COLONOSCOPY, Modifiers: 33 * * The named appointment provid er may or may not be the originator of this progress note, and it is not deemed complete until electronically signed by the appointment provider. Sign off status: Pending * Provider: Colette Teague MD Date: 0 09/02/2024 Generated for Ivanna yuan/Ronald/Hollisitting on: 0 04/17/2025 03:10 PM EDT
--- OUTSIDE RECORDS SUMMARY | 2025-04-17 15:11 | XMS_ITS | Patient Health Record ---
[facility] Melonie medardo RodriguezAntoine Address [address] [facility] [place] [address] Care Team Providers Care Labor Relations Manager Name Role Phone Pramod England MD Primary Care Provider Unavaila ble Chiara Lyn Unavailable [phone] Reason For Referral No Information Medications Medication [...] Status W/U Status Risk Notes Problem Bursitis (43471955) Bursitis (727.3) Active confirmed Problem Myositis (81850783) Myositis (729.1) Active confirmed Problem Pain in limb (16207601) Pain in Limb (729.5) Active confirmed Problem Plantar fasciitis (213205926) Plantar Fasciitis (728.71) Active confirmed Problem Calcaneal spur (02612310) Calcaneal spur (726.73) Active confirmed Plan Of Treatment Pending Test Test Name Order Date X ray : Foot, left 3V 12/09/2012 X ray : Foot, right 3V 12/09/2012 Insurance Providers Payer Name Payer Address Payer Phone Subscriber Number Group Number Insured Name Patient Relationship to Insured Coverage Start Date Coverage End Date [facility] [address] [place] [address] [id number] Ana Tejeda Self - patient is the insured Medical (General) History Medical History History ICD Code diabetic Surgical History Surgery Date(Month/Year) ear surgery
--- OUTSIDE RECORDS SUMMARY | 2025-04-17 15:11 | XMS_ITS | Patient Health Record ---
Author Organization [facility] Address [address] [place] [address] Care Team Providers Care Analytical Lab Analyst Name Role Phone Samanta (RETIRED) Pramod VIERA Primary Care Provide r Jadon Sutherland Unavailable [phone] Allergies No Known Allergies Results Component Value Reference Range Notes Glucose, Whole Blood Reviewed date:09/02/2024 06:24:11 PM Interpretation: Performing Lab:[facility], [address] [place] [phone] Notes/Report: Glucose, Whole Blood 278 60-115 mg/dL METER # : [id number] Glucose, Whole Blood Reviewed date:09/02/2024 06:24:04 PM Interpretation: Performing Lab:[facility], [address] [place] [phone] Notes/Report: Glucose, Whole Blood 144 60-115 mg/dL METER # : [id number] Reason For Referral No Information Medications Medication [...] Problem Screening for malignant neoplasm of colon (900011679) Special screening for malignant neoplasms, colon (V76.51) Active confirmed Problem Pre-procedure evaluation check (776412620) Encounter for other preprocedural examination (Z01.818) Active confirmed Problem Diverticular disease of colon (883867217) Diverticulosis of large intestine without perforation or abscess without bleeding (K57.30) Active confirmed Encounters Encounter Location Date Provider Diagnosis [facility] [address] [place] [address] [id number] 09/02/2024 Jadon Teague Colon cancer scree red [...] Insured Coverage Start Date Coverage End Date [facility] [address] [place] [address] [id number] BAUTISTA BROWN Self - patient is the insured Medical (General) History Medical History History ICD Code Denies NC,DM,CVA,Lung disease,renal dise ase IDDM Hypothyroidism Negative screening colonoscopy in 2011 Heartburn--TUMS prn Surgical History Surgery Date(Month/Year) BTL
== END 2025-04-17 11:24 | disposition home or self-care (01) ==
LOC: HO.HMGAL 11:14
PROVIDERS: PCP Physician Assistant; Visit Provider Registered Nurse Emergency
DX: J30.89 Other allergic rhinitis (principal)
CPT/HCPCS: 95117; 95165

== ENCOUNTER 2025-04-21 10:37 | Outpatient (AMB) | payer BC, SELFPAY ==
--- NOTE | 2025-04-21 10:38 | A.OFFPC_ITS ---
Vital Signs 04/21/25 10:42 Height 5 ft 3 in Weight 60.328 kg BMI 23.6 BP 140/74 H Respiration 16 Pulse 65 Pulse Source Pulse Oximeter Temp 97.1 F Temp Source Temporal Artery Scan Pulse Oximetry (%) 99 Oxygen Delivery Method Room Air Intake Visit Reasons: 3 month f/u - see comments Relations Mgr Required: No Accompanied by: Self / Same As Patient Allergies Seasonal Allergies Adverse Reaction (Verified 04/21/25 10:39) Unknown Medication List - Last Reconciled 04/21/25 by EDIS Trevizo blood sugar diagnostic 4 times a day insulin glargine (Lantus Solostar U-100 Insulin) 35 units (0.35 mL) subcut DAILY insulin lispro (Humalog KwikPen (U-100) Insulin) 1 sliding scale dose subcut TIDWMEAL lancets (OneTouch Delica Lancets) four times a day levothyroxine 112 mcg PO DAILY loratadine (Allergy Relief (loratadine)) 10 mg PO DAILY omeprazole 20 mg PO DAILY pen needle, diabetic As directed 4X DAILY. pen needle, diabetic As directed rosuvastatin 10 mg PO DAILY tramadol 50 mg PO BID PRN triamcinolone acetonide 0.1% 1 appl topical BID PRN HPI HPI Comments History of Present Illness Details 64-year-old female with history of type 2 diabetes, hypothyroidism, GERD, hyperlipidemia, varicose veins presents to the office today for management of chronic conditions. Type 2 diabetes-most recent A1c 12.7%. Lantus had been increased to 20 units morning following last labs and she was continued on lispro. She does feel she is following a diabetic diet- doesn't eat much in the morning. Glucose average fasting 152. Not using insulin at work. * she does also tell me that she had a cortisone injection in the right knee about 2 months ago Hypothyroidism-on levothyroxine 112 mcg daily. Hyperlipidemia-last LDL 84. Compliant with rosuvastatin Varicose veins-s/p vein stripping many years ago. Recently, has been experiencing aching in the veins as well as swelling and pain in the right knee without injury. Mild OA/CPPD R knee- received cortisone injection about 2 months ago, question this is why her A1c was so elevated. Reports this was not effective. Does state that tramadol use intermittently does help. Ibuprofen and Tylenol do not provide relief. She does have a follow-up next month with Orthopedics. Concerns: BUE rash- started about 2 months ago. No itch. No new contacts. no hx similar rash. Has not been in the sun alot. No drainage or pain. Seasonal allergies, no other known. Gets allergy shots monthly. 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 ROS: See HPI EXAM: EXAM: Constitutional - Awake and Alert, No apparent distress Eyes - PERRL Cardiovascular - S1S2, RRR, No edema Respiratory - Normal lung expansion, Normal respiratory effort, No respiratory distress, CTA bilaterally Extremities - no calf tenderness bilaterally, no swelling Skin - Warm/Dry. Flesh-colored papular rash of the bilateral forearms and right upper arm. No erythema, warmth, drainage Neurological - Alert & oriented x3 Psychological - Appropriate affect PFSH Medical History (Updated 04/21/25 @ 11:22 by EDIS Trevizo) Heartburn DM2 (diabetes mellitus, type 2) HLD (hyperlipidemia) Hypothyroidism Surgical History (Updated 11/23/24 @ 13:58 by Corry Uriostegui) H/O colonoscopy (~09/02/24) Hx of vein stripping Family History Father Alzheimer disease Mother Alzheimer disease Heart attack Brother Diabetes Brother Diabetes Sister Diabetes Social History Household Members: Spouse Are you a primary account executive healthcare to a significant other at home: No Do you presently have visiting nurse or other home services: No Unable to assess alcohol history related to: Unknown Alcohol intake: current Patient Tobacco Use Status: Never used Tobacco Current occupational status: employed 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 Jadon Ingram, Karen Ruiz, Juan David Shah and colleagues, with an educational laura from [employer]. Physical exam (Primary Care) Vital Signs: Last Vital Signs Temp 97.1 F 04/21/25 10:42 Pulse 65 04/21/25 10:42 Resp 16 04/21/25 10:42 BP 140/74 H 04/21/25 10:42 Pulse Ox 99 04/21/25 10:42 Oxygen Delivery Method Room Air 04/21/25 10:42 BMI result Body Mass Index 23.6 Tobacco/Smoking Status: Tobacco use Status Patient Tobacco Use Status Never used Tobacco 04/21/25 10:41 Thrive Assessment: Date of Thrive Assessment Date Thrive assessed 01/20/25 04/21/25 10:41 Coding Level of Care Code Est Pt Level 4 (64340) Complex EM visit Add On G2211 Diagnoses Hypothyroidism E03.9 Pure hypercholesterolemia E78.00 Hyperlipidemia type: pure hypercholesterolemia Type 2 diabetes mellitus with hyperglycemia, unspecified whether [facility] insulin use E11.65 Diabetes mellitus [facility] insulin use: unspecified [facility] insulin use status Diabetes mellitus complication status: with hyperglycemia Calcium pyrophosphate deposition disease (CPPD) M11.20 Dermatitis, unspecified L30.9 Assessment & Plan Assessment & Plan (1) Hypothyroidism: Code(s): E03.9 - Hypothyroidism, unspecified Category: Medical Plan: Stable. Continue levothyroxine 112 mcg daily (2) HLD (hyperlipidemia): Code(s): E78.5 - Hyperlipidemia, unspecified Category: Medical Qualifiers: Hyperlipidemia type: pure hypercholesterolemia Qualified Code(s): E78.00 - Pure hypercholesterolemia, unspecified Plan: Borderline. Continue rosuvastatin 10 mg daily. Diet low in saturated fats and highly processed foods. (3) DM2 (diabetes mellitus, type 2): Code(s): E11.9 - Type 2 diabetes mellitus without complications Category: Medical Qualifiers: Diabetes mellitus paper bag machine operator insulin use: unspecified paper bag machine operator insulin use status Diabetes mellitus complication status: with hyperglycemia Qualified Code(s): E11.65 - Type 2 diabetes mellitus with hyperglycemia Plan: Uncontrolled. Elevated A1c of 12.7% likely impacted by recent cortisone injection. However, it is unlikely that this is responsible for the elevation entirely. Increase Lantus to 35 units daily. She is also advised that she must use her prandial insulin as well. She is given a letter of medical necessity to present to her employer. Continue with diabetic diet. Annual eye exams. She is also referred to endocrinology (4) Calcium pyrophosphate deposition disease (CPPD): Code(s): M11.20 - Other chondrocalcinosis, unspecified site Category: Medical Plan: With mild osteoarthritis. No improvement with cortisone injection. Trial colchicine. Can follow-up with Orthopedic surgery next month, the would use caution with cortisone injections. She is again counseled on sliding scale to help manage hyperglycemia (5) Dermatitis, unspecified: Code(s): L30.9 - Dermatitis, unspecified Category: Medical Plan: Etiology unclear. Trial triamcinolone cream twice daily and advised to also take loratadine on a daily basis. Continue with allergy shots and recommend follow-up with photocomposing keyboard operator if needed Plan Follow-up in the office in 3 months with labs to be completed prior to visit Orders: Orders Lipid Panel 3 Months E03.9 - Hypothyroidism, unspecified, E11.65 - Type 2 diabetes mellitus with hyperglycemia, E78.00 - Pure hypercholesterolemia, unspecified Basic Metabolic Panel 3 Months E03.9 - Hypothyroidism, unspecified, E11.65 - Type 2 diabetes mellitus with hyperglycemia, E78.00 - Pure hypercholesterolemia, unspecified Hemoglobin A1c 3 Months E03.9 - Hypothyroidism, unspecified, E11.65 - Type 2 diabetes mellitus with hyperglycemia, E78.00 - Pure hypercholesterolemia, un specified Liver Panel 3 Months E03.9 - Hypothyroidism, unspecified, E11.65 - Type 2 diabetes mellitus with hyperglycemia, E78.00 - Pure hypercholesterolemia, unspecified TSH reflex Free T4 3 Months E03.9 - Hypothyroidism, unspecified, E11.65 - Type 2 diabetes mellitus with hyperglycemia, E78.00 - Pure hypercholesterolemia, unspecified Referrals Endocrinology Referral E11.65 - Type 2 diabetes mellitus with hyperglycemia Medications: New loratadine (Allergy Relief (loratadine)) 10 mg PO DAILY 90 tabs 0RF triamcinolone acetonide 0.1% 1 appl topical BID PRN 30 grams 2RF rash colchicine Discontinue use once symptoms resolve 0.6 mg PO BID 180 tabs 0RF Changed From insulin glargine (Lantus Solostar U-100 Insulin) 10 units (0.1 mL) subcut BEDTIME 15 mL 3RF To insulin glargine (Lantus Solostar U-100 Insulin) 35 units (0.35 mL) subcut DAILY 15 mL 3RF From pen needle, diabetic As directed 4X DAILY. 120 ea 0RF E11.65 - Type 2 diabetes mellitus with hyperglycemia To pen needle, diabetic As directed 3X DAILY. 120 ea 0RF E11.65 - Type 2 diabetes mellitus with hyperglycemia Refilled tramadol 50 mg PO BID PRN 30 tabs 0RF pain Patient Instructions: Follow up in 3 months with labs prior to visit INCREASE lantus to 35 units daily Start using Humalog 3 times daily with meals- Discuss medical need for fridge to store medication Use Humalog only using sliding scale on direction
[2025-04-21 10:42] VITALS: BP 140/74; PULSE 65; RESP 16; TEMP 36.2; O2SAT 99; BMI 23.6
== END 2025-04-21 11:16 | disposition home or self-care (01) ==
LOC: HO.HMCHD 10:38
PROVIDERS: PCP Internal Medicine; Visit Provider Physician Assistant
DX: E03.9 Hypothyroidism, unspecified (principal); E78.00 Pure hypercholesterolemia, unspecified; E11.65 Type 2 diabetes mellitus with hyperglycemia; M11.20 Other chondrocalcinosis, unspecified site; L30.9 Dermatitis, unspecified

== ENCOUNTER 2025-05-10 15:08 | Outpatient (AMB) | payer BC, SELFPAY | END 2025-05-10 15:09 | disposition home or self-care (01) | LOC: HO.HMGAL 15:08 | PROVIDERS: PCP Physician Assistant; Visit Provider Registered Nurse Emergency | DX: J30.89 Other allergic rhinitis (principal) | CPT/HCPCS: 95117; 95165 ==

== ENCOUNTER 2025-06-21 13:15 | Outpatient (AMB) | payer BC, SELFPAY ==
--- OUTSIDE RECORDS SUMMARY | 2024-09-02 02:30 | XMS_ITS ---
Author Organization [facility] Address [address] [place] [address] Care Team Providers Care Child Care Director Name Role Phone Samanta (RETIRED) Pramod VIERA Primary Care Provide r Jadon Sutherland Unavailable [phone] REASON FOR VISIT screening Problems Problem Type SNOMED Code ICD Code Onset Dates Problem Status W/U Status Risk Notes Problem Diverticular disease of colon (902620726) Diverticulosis of large intestine without perforation or abscess without bleeding (K57.30) Active confirmed Encounters Encounter Location Date Provider Diagnosis [facility] [address] [facility] [place] [phone] 09/02/2024 Jadon Teague Colon cancer scree red Z12.11 ; Diverticulosis of large intestine without perforation or abscess without bleeding K57.30 and Other hemorrhoids K64.8 Assessments Encounter Date Diagnosis (ICD Code) Assessment Notes Treatment Notes Treatment Clinical Notes Section Notes 09/02/2024 Colon cancer screening (ICD-10 - Z12.11) 09/02/2024 Diverticulosis of large intestine without perforation or abscess without bleeding (ICD-10 - K57.30) 09/02/2024 Other hemorrhoids (ICD-10 - K64.8) Plan Of Treatment No Information Progress Notes * SIDNEY BROWNB: (65 yo F)Acc No.[id number]:09/02/2024 COLON WITH MAC Patient: Lynette LANDRY BAUTISTA Provider: Colette Teague MD :1960 A ge:64 Y S ex:Female Date:09/02/2024 Address:[address] [place] [address] , [place], [id number] Pcp:Pramod England (RETIRED )MD Subjective: * Chief Complaints: * S creening Assessment: * Assessment: 1. C olon cancer screening - Z12.11 (Primary) 2 . D iverticulosis of large intestine without perforation or abscess without bleeding - K57.30 3 . O ther hemorrhoids - K64.8 Plan: * Procedure Codes: 4 5378 DIAGNOSTIC COLONOSCOPY, Modifiers: 33 Billing Information: * Procedure Codes: 67579 DIAGNOSTIC COLONOSCOPY. Modifiers: 33 * The named appointment provid er may or may not be the originator of this progress note, and it is not deemed complete until electronically signed by the appointment provider. Sign off status: Pending * Provider: Colette Teague MD Date: 0 09/02/2024 Generated for Ivanna yuan/Ronald/Hollisitting on: 08/22/2024 01:08 AM EST
--- NOTE | 2025-06-21 13:24 | MHC.OFFVIS ---
Vital Signs 06/21/25 13:29 Height 5 ft 3 in Weight 133 lb 6.075 oz BMI 23.6 BP 140/72 H Blood Pressure Location Lt brachial Position Sitting Pulse 77 Pulse Source Pulse Oximeter Pulse Oximetry (%) 96 Oxygen Delivery Method Room Air Intake Visit Reasons: Type 2 diabetes mellitus with hyperglycemia Intake Note: New patient present today for T2DM. Last Diabetic [facility] exam: [facility] Last Podiatry Visit: Does not see a [place] Bone Roller Random Glucose: 284 mg/dl Hgb A1C: 12.7% 04/15/2025 Sausage Inspector Required: No Accompanied by: Self / Same As Patient Allergies Seasonal Allergies Adverse Reaction (Verified 06/21/25 13:30) Unknown Medication List - Last Reconciled 06/21/25 by Jadon Cameron MD blood sugar diagnostic 4 times a day colchicine 0.6 mg PO BID insulin glargine (Lantus Solostar U-100 Insulin) 35 units (0.35 mL) subcut DAILY insulin lispro (Humalog KwikPen (U-100) Insulin) 1 sliding scale dose subcut TIDWMEAL lancets (OneTouch Delica Lancets) four times a day levothyroxine 112 mcg PO DAILY loratadine (Allergy Relief (loratadine)) 10 mg PO DAILY omeprazole 20 mg PO DAILY pen needle, diabetic As directed 3X DAILY. pen needle, diabetic As directed rosuvastatin 10 mg PO DAILY tramadol 50 mg PO BID PRN triamcinolone acetonide 0.1% 1 appl topical BID PRN HPI Comments Details: Patient is a 65yo female with Dm2 diagnosed 5 years ago, who presents for management. Patient was last seen 07/11/2021 and a tele health visit for both diabetes by Ricarda Avendano NP PMH: DM2, HLD, Hypothyroidism 1) Diabetes Patient was last seen 04/09/2021 with uncontrolled blood glucose. Her A1c had been 11.7% in January. She was also found to have a low C-peptide indicating little insulin reserve. She was negative for type 1 diabetes She was started on Humalog prior to meals and glipizide was stopped. Complications: none Medications: Lantus 35 units, Humalog 10 units prior to meals. Intolerant metformin due to stomach ache Glucometer download shows she is checking her point of cares twice a day. Range is 58-442. 35% range with 62% hyperglycemia and 3% hypoglycemia. Review of the point of cares show higher blood sugars in the morning with low blood sugars in the afternoon. Symptoms: Denies numbness tingling and cramping in legs Hypoglycemia: experiencing Hyperglycemia: reports polyuria because drinks a lot of water. denies polydysia. Denies blurry vision. Glucose monitoring: In the last 2 weeks 0.7 readings per day. Range 110 to 339, average 219. Patient has been checking at variable times during the day, fasting a.m. 100 in 167-339.. Opthalmologist: no retinopathy. Needs to make appt Brother and sisters have Type 2 DM Laboratory Tests 11/23/20 11/23/20 02/25/21 11:40 12:00 14:19 Creatinine 0.79 Estimated GFR > 60 Hgb A1c (Clinic) 11.7 H Hemoglobin A1c % C-Peptide Triglycerides 72 Cholesterol 220 HDL Cholesterol 81 TSH 0.12 L Free T4 1.11 Microalb/Creat Ratio 37.5 Thyroglobulin Antibody Thyroid Peroxidase Ab Islet Cell Ab Titer GUERITA Antibody 02/26/21 02/26/21 02/26/21 07:05 07:05 07:05 Creatinine 0.85 Estimated GFR > 60 Hgb A1c (Clinic) Hemoglobin A1c % 11.1 C-Peptide Triglycerides Cholesterol HDL Cholesterol TSH 1.08 Free T4 1.29 Microalb/Creat Ratio Thyroglobulin Antibody 3 H Thyroid Peroxidase Ab 1 Islet Cell Ab Titer GUERITA Antibody 02/26/21 07:05 Creatinine Estimated GFR Hgb A1c (Clinic) Hemoglobin A1c % C-Peptide 0.77 L Triglycerides Cholesterol HDL Cholesterol TSH Free T4 Microalb/Creat Ratio Thyroglobulin Antibody Thyroid Peroxidase Ab Islet Cell Ab Titer TNP GUERITA Antibody <5 [facility] Medical History (Updated 04/21/25 @ 11:22 by EDIS Trevizo) Heartburn DM2 (diabetes mellitus, type 2) HLD (hyperlipidemia) Hypothyroidism Surgical History H/O colonoscopy (~09/02/24) Hx of vein stripping Family History Father Alzheimer disease Mother Alzheimer disease Heart attack Brother Diabetes Brother Diabetes Sister Diabetes Social History Household Members: Spouse Are you a primary care aid to a significant other at home: No Do you presently have visiting nurse or other home services: No Alcohol intake: current Patient Tobacco Use Status: Never used Tobacco Current occupational status: employed 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 Absence of acromegalic features. Neck exam reveals nl size thyroid about 15 gms. No thyroid nodules palpable. No carotid bruits present. Lungs CTA. Heart S1 S2, Reg R/R. No M/R/ G. Skin exam reveals absence of vitiligo or acanthosis nigricans. Abdominal exam reveals Soft NT/ND with NA BS. No organomegaly present. Neck Other: . Extrem Other: Visual exam of foot performed. No ulcerations or open lesions. No onchomycosis, no callouses.Pulses 2 + distally Sensation intact to monofilament exam. Vibratory sensation sensed is intact with 128 Hz tuning fork Assessment & Plan Assessment & Plan (1) DM2 (diabetes mellitus, type 2): Code(s): E11.9 - Type 2 diabetes mellitus without complications Category: Medical Qualifiers: Diabetes mellitus half-way insulin use: unspecified ferry terminal agent insulin use status Diabetes mellitus complication status: with hyperglycemia Qualified Code(s): E11.65 - Type 2 diabetes mellitus with hyperglycemia Plan: This is a 65-year-old female with a history of type 2 diabetes being treated with basal-bolus insulin with poor glycemic control and no known microvascular macrovascular complication The plan is to talk to the patient about initiating a sensor namely Silvestre 3+. There was not enough information today to make changes to the insulin regimen. We will have patient see planer feeder and safety professional. Once the patient is able to use the sensor more information is obtained, could consider the use of a G LP 1 agonist in combination with insulin. Went over with the patient the correlation of poor glycemic control to development of progression of complications Orders: Referrals Diabetes Education Referral E11.65 - Type 2 diabetes mellitus with hyperglycemia Nutrition/Dietitian Referral E11.65 - Type 2 diabetes mellitus with hyperglycemia Medications: New FreeStyle Silvestre 3 Sensor (blood-glucose sensor) As directed change every 15 days 2 ea 5RF NS Coding Level of Care Code Est Pt Level 4 (50513) Diagnoses Type 2 diabetes mellitus with hyperglycemia, unspecified whether half-way insulin use E11.65 Diabetes mellitus half-way insulin use: unspecified ferry terminal agent insulin use status Diabetes mellitus complication status: with hyperglycemia
[2025-06-21 13:29] VITALS: BP 140/72; PULSE 77; O2SAT 96; BMI 23.6
[2025-06-21 13:44] LABS: Glucose, Whole Blood 284 mg/dL (60-115)
--- OUTSIDE RECORDS SUMMARY | 2025-06-22 01:08 | XMS_ITS | Patient Health Record ---
Author Organization [facility] Address [address] [place] [address] Care Team Providers Care Apprentice Stylist Name Role Phone Samanta (RETIRED) Pramod VIERA Primary Care Provide r Jadon Sutherland [phone] Allergies No Known Allergies Results Component Value Reference Range Flag Notes Glucose, Whole Blood Reviewed date:09/02/2024 06:24:11 PM Interpretation: Performing Lab:[facility], [address] [place] [phone] Notes/Report: Glucose, Whole Blood 278 60-115 mg/dL H ME TER #: [id number] Glucose, Whole Blood Reviewed date:09/02/2024 06:24:04 PM Interpretation: Performing Lab:[facility], [address] [place] [phone] Notes/Report: Glucose, Whole Blood 144 60-115 mg/dL H ME TER #: [id number] Reason For Referral No Information Medications Medication SIG (Take, Route, Frequency, Duration) Notes Start Date End Date Status Lantus 100 UNIT/ML Solution as directed Subcutaneous in AM Active metFORMIN HCl 500mg Not-Taking/SC N Synthroid 200mcg Act mary HumaLOG 10cc in evening Active MoviPrep 100 GM Solution Reconstituted as directed Orally 07/03/2011 Not-Taki ng/SC N Immunizations Vaccine Route Administration Date Status Comme nts Influenza Unknown 05/26/2023 Administered Social History Social History Drugs/Alcohol: Social Info Question Answer Notes Alcohol Screen Did you have a drink containing alcohol in the past year? Yes How often did you have a drink containing alcohol in the past year? Monthly or less (1 point) How many drinks did you have on a typical day when you were drinking in the past year? 1 or 2 drinks (0 point) How often did you have 6 or more drinks on one occasion in the past year? 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 [email or web address] Section Notes: She does not smoke, and elzbieta dominguez only occasional alcohol She does not smoke, and elzbieta ks only occasional alcohol Problems Problem Type SNOMED Code ICD Code Onset Dates Problem Status W/U Status Risk Notes Problem Screening for malignant neoplasm of colon (207745137) Special screening for malignant neoplasms, colon (V76.51) Active confirmed Problem Pre-procedure evaluation check (342596380) Encounter for other preprocedural examination (Z01.818) Active confirmed Problem Diverticular disease of colon (837515798) Diverticulosis of large intestine without perforation or abscess without bleeding (K57.30) Active confirmed Encounters Encounter Location Date Provider Diagnosis [facility] Outpatient [address] [place] [id number] 09/02/2024 Jadon Teague Colon cancer scree red [...] Insured Coverage Start Date Coverage End Date [employer] PROFESSIONAL CLAIMS [address] [place] [address] [id number] BAUTISTA BROWN Self - patient is the insured Medical (General) History Medical History History ICD Code Denies [place],DM,CVA,Lung disease,renal dise ase IDDM Hypothyroidism Negative screening colonoscopy in 2011 Heartburn--TUMS prn Surgical History Surgery Date(Month/Year) BTL
--- OUTSIDE RECORDS SUMMARY | 2025-06-22 01:09 | XMS_ITS | Patient Health Record ---
[facility] Melonie medardo RodriguezAntoine Address [address] [place] [address] Care Team Providers Care Gas Meter Installer Helper Name Role Phone Pramod England MD Primary Care Provider Unavaila ble Chiara Lyn Unavailable [phone] Reason For Referral No Information Medications Medication [...] Status W/U Status Risk Notes Problem Bursitis (54533374) Bursitis (727.3) Active confirmed Problem Myositis (67610486) Myositis (729.1) Active confirmed Problem Pain in limb (75047777) Pain in Limb (729.5) Active confirmed Problem Plantar fasciitis (859537507) Plantar Fasciitis (728.71) Active confirmed Problem Calcaneal spur (99285415) Calcaneal spur (726.73) Active confirmed Plan Of Treatment Pending Test Test Name Order Date X ray : Foot, left 3V 12/09/2012 X ray : Foot, right 3V 12/09/2012 Insurance Providers Payer Name Payer Address Payer Phone Subscriber Number Group Number Insured Name Patient Relationship to Insured Coverage Start Date Coverage End Date [facility] [address] [place] [address] [id number] Ana Tejeda Self - patient is the insured Medical (General) History Medical History History ICD Code diabetic Surgical History Surgery Date(Month/Year) ear surgery
== END 2025-06-21 14:15 | disposition home or self-care (01) ==
LOC: HO.ENCR 13:15
PROVIDERS: PCP Internal Medicine; Visit Provider Internal Medicine Endocrinology, Diabetes & Metabolism
DX: E11.65 Type 2 diabetes mellitus with hyperglycemia (principal)
CPT/HCPCS: 99214

== ENCOUNTER → 2025-06-21 13:15 | Outpatient (BNVA) | payer BC, SELFPAY | PROVIDERS: PCP Internal Medicine; Visit Provider Internal Medicine Endocrinology, Diabetes & Metabolism | DX: E11.65 Type 2 diabetes mellitus with hyperglycemia (principal) | CPT/HCPCS: 82947 ==

== ENCOUNTER 2025-06-26 11:39 | Outpatient (AMB) | payer BC, SELFPAY | END 2025-06-26 11:40 | disposition home or self-care (01) | LOC: HO.HMGAL 11:39 | PROVIDERS: PCP Internal Medicine; Visit Provider Registered Nurse Emergency | DX: J30.89 Other allergic rhinitis (principal) | CPT/HCPCS: 95117; 95165 ==

== ENCOUNTER 2025-07-08 07:48 | Outpatient (REF) | payer BC, SELFPAY ==
[2025-07-08 10:08] LABS: Alanine Aminotransferase 64 U/L (0-31); Albumin Level 4.8 g/dL (3.5-5.0); Alkaline Phosphatase 86 U/L (39-117); Anion Gap 13 (12-20); Aspartate Amino Transferase 36 U/L (5-31); Blood Urea Nitrogen 18 mg/dL (9-16); Calcium 9.7 mg/dL (8.4-10.2); Carbon Dioxide 27 mmol/L (22-29); Chloride 109 mmol/L (96-108); Cholesterol 173 mg/dL (<200); Estimated Glomerular Filt Rate > 60; HDL Cholesterol 66 mg/dL (>40); Potassium 4.8 mmol/L (3.3-5.1); Sodium 144 mmol/L (135-145); Total Protein 7.3 g/dL (6.5-8.0); Triglycerides 100 mg/dL (<150)
== END 2025-07-08 07:49 | disposition home or self-care (01) ==
LOC: HO.LAB 07:48
PROVIDERS: PCP Physician Assistant; Visit Provider Physician Assistant
DX: E11.65 Type 2 diabetes mellitus with hyperglycemia (principal); E03.9 Hypothyroidism, unspecified; E78.00 Pure hypercholesterolemia, unspecified
CPT/HCPCS: 36415; 80048; 80061; 80076; 83036; 84443

== ENCOUNTER 2025-07-17 10:16 | Outpatient (AMB) | payer BC, SELFPAY ==
[2025-07-17 10:19] VITALS: BP 126/74; PULSE 80; TEMP 36.5; O2SAT 98; BMI 23.9
--- NOTE | 2025-07-17 10:19 | A.OFFPC_ITS ---
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: No Accompanied by: Self / Same As Patient Allergies Seasonal Allergies Adverse Reaction (Verified 07/17/25 10:20) Unknown Tobacco use date assessed: 07/17/25 Fall risk assessment: No Falls in past year Last assessed Fall Risk: 07/17/25 Dental Screening Dental Screen Date: 07/17/25 Did you have a dental visit in the last 12 months?: No Did you have a dental problem in the last 6 months where you did not have access to dental care?: No HPI HPI Comments History of Present Illness Details 64-year-old female with history of type 2 diabetes, hypothyroidism, GERD, hyperlipidemia, varicose veins presents to the office today for management of chronic conditions. Type 2 diabetes-A1c improved to 10.2% though remains quite uncontrolled. She is now following with endocrinology. Fasting glucose this am 240. Lantus has been increased to 35 units daily and she is using lispro on a sliding scale. She does feel she is following a diabetic diet- doesn't eat much in the morning. Stopped cortisone injection recently. Due for eye exam- [place] Hypothyroidism-on levothyroxine 112 mcg daily. Last TSH 0.69 Hyperlipidemia-last LDL 87. Compliant with rosuvastatin Varicose veins-s/p vein stripping many years ago. Recently, has been experiencing aching in the veins as well as swelling and pain in the right knee without injury. Mild OA/CPPD R knee- received cortisone injection about 2 months ago, question this is why her A1c was so elevated. Looking for possibel gel injection. Does state that tramadol use intermittently does help. Ibuprofen and Tylenol do not provide relief. Needs to make ortho appt Concerns: BUE rash- started about 6 months ago. No itch. No new contacts. no hx similar rash. Has not been in the sun alot. No drainage or pain. Seasonal allergies, no other known. Gets allergy shots monthly. 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 Triamcinolone did not help. Never took claritin Fatigue- reports sleeping well. No med changes. Health maintenance: Last mammogram, BI-RADS 2, 1 year follow-up. Last colonoscopy 08/2024 with 10 year follow-up. Dr. 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 Slightly hyperpigmented papular rash of the bilateral forearms and right upper arm. No erythema, warmth, drainage Neurological - Alert & oriented x3 Psychological - Appropriate affect PFSH Medical History Heartburn DM2 (diabetes mellitus, type 2) HLD (hyperlipidemia) Hypothyroidism Surgical History H/O colonoscopy (~09/02/24) Hx of vein stripping Family History (Updated 07/17/25 @ 10:27 by Pattie Powell MA) Father Alzheimer disease Mother Alzheimer disease Heart attack Brother Diabetes Brother Diabetes Sister Diabetes Social History Household Members: Spouse Housing: Condominium Are you a primary neonatal intensive care nurse to a significant other at home: No Do you presently have visiting nurse or other home services: No Alcohol intake: current Patient Tobacco Use Status: Never used Tobacco e-Cigarette/Vaping Use: Never Used service: No Current occupational status: employed 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 1. Little interest or pleasure in doing things: not at all 2. Feeling down, depressed, or hopeless: not at all 3. Trouble falling or staying asleep, or sleeping too much: not at all 4. Feeling tired or having little energy: not at all 5. Poor appetite or overeating: not at all 6. Feeling bad about yourself - or that you are a failure or have let yourself or your family down: not at all 7. Trouble concentrating on things, such as reading the newspaper or watching television: not at all 8. Moving or speaking so slowly that other people could have noticed. Or the opposite - being so fidgety or restless that you have been moving around a lot more than usual: not at all 9. Thoughts that you would be better off or of hurting yourself in some way: not at all Total score: 0 Depression Screening Interpretation: Negative Depression Screening Done: Yes 80912 - PHQ-9 Billing: Yes Source: Developed by Drs. Jadon Ingram, Karen Ruiz, JuanD avid Shah and colleagues, with an educational laura from [employer]. Thrive Questionnaire Date Thrive assessed: 07/17/25 I am a: Patient What is your living situation today?: I have a steady place to live Within the past 12 months, did the food you bought not last and you didn't have the money to get more?: Never true Within the past 12 months, did you worry whether your food would run out before you got money to buy more?: Never true Do you have trouble paying for medicines?: No Do you have trouble getting transportation to medical appointments?: No Do you have trouble paying your heating and electricity bill?: No Do you have trouble taking care of your child, family member or friend?: No Do you have trouble with day-to-day activities such as bathing, preparing meals, shopping, managing finances, etc.?: No Are you currently unemployed and looking for a job?: No Are you interested in more education?: No Please select the resources that you would like help with: None Currently or been in a relationship where the following occur: No concerns reported THRIVE Score: 0 AUDIT C Alcohol Use Questionnaire (AUDIT-C) 1. How often do you have a drink containing alcohol?: Monthly or less 2. How many drinks containing alcohol do you have on a typical day when you are drinking?: 1 or 2 3. How often do you have six or more drinks on one occasion?: Monthly Total Score: 3 GUERITA-7 AMB Questionnaire GUERITA-7 Date GUERITA - 7 assessed: 07/17/25 Feeling nervous, anxious, or on edge: 0 = Not at all Not being able to stop or control worryin = Not at all Worrying too much about different things: 0 = Not at all Trouble relaxin = Not at all Being so restless that it is hard to sit still: 0 = Not at all Becoming easily annoyed or irritable: 0 = Not at all Feeling afraid as if something awful might happen: 0 = Not at all Total GUERITA-7 score (0-4 normal; 5-9 mild; 10-14 moderate; 15-21 severe): 0 Source: Developed by Drs. Jadon Ingram, Karen Ruiz, Juan David Shah and colleagues, with an educational laura from [employer]. GUERITA-7 Assessment Billing GUERITA-7 Assessment Tool: GUERITA-7 Assessment 31775 Physical exam (Primary Care) Vital Signs: Last Vital Signs Temp 97.7 F 07/17/25 10:19 Pulse 80 07/17/25 10:19 BP 126/74 07/17/25 10:19 Pulse Ox 98 07/17/25 10:19 Oxygen Delivery Method Room Air 07/17/25 10:19 BMI result Body Mass Index 23.9 Tobacco/Smoking Status: Tobacco use Status Tobacco use date assessed 07/17/25 07/17/25 10:28 Patient Tobacco Use Status Never used Tobacco 07/17/25 10:28 e-Cigarette/Vaping Use Never Used 07/17/25 10:28 Depression Screening Interpretation: Negative Thrive Assessment: Date of Thrive Assessment Date Thrive assessed 07/17/25 07/17/25 10:28 Currently or been in a relationship where the following occur: No concerns reported Office Procedures Flu Questionnaire Does the patient have a severe egg allergy?: No Does the patient have severe life threatening allergies?: No Does the patient have a fever or illness today?: No Has the patient ever had Guillain-Jefferson Syndrome?: No Has the patient ever had any past reaction to a flu shot?: No Immunizations Fluarix [id number] (PF) 45 mcg (15 mcg x 3)/0.5 mL IM syringe Performing Provider: EDIS Trevizo Performing Location: [facility] [place] Adult Primary Care-10 HD Administered by: Briana Vyas CMA on 07/17/25 10:33 Dose Route Admin Location Dispensed Lot Number Expiration Date [facility] Collar Setter 0.5 mL IM Right Deltoid 0.5 mL [id number] 01/30/26 [id number] Wanna Migrate VIS Given Date VIS Provided VIS Publication Date 07/17/25 Single Vaccine 24 Eligibility Eligibility Date Funding Source Not [facility] Eligible 07/17/25 Private Coding Level of Care Code Est Pt Level 4 (94652) Add On Problem Visit Only Diagnoses Hypothyroidism E03.9 Pure hypercholesterolemia E78.00 Hyperlipidemia type: pure hypercholesterolemia Type 2 diabetes mellitus with hyperglycemia, unspecified whether alf insulin use E11.65 Diabetes mellitus alf insulin use: 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 Continue levothyroxine 112 mcg daily (2) HLD (hyperlipidemia): Code(s): E78.5 - Hyperlipidemia, unspecified Category: Medical Qualifiers: Hyperlipidemia type: pure hypercholesterolemia Qualified Code(s): E78.00 - Pure hypercholesterolemia, unspecified Plan: Borderline. Continue rosuvastatin 10 mg daily. Diet low in saturated fats and highly processed foods. 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 Reviewed last note from endocrinology. Advised to continue checking fasting glucose daily, goal between 90-130. Continue increased dose of Lantus to 35 units daily as well as sliding scale. Continue with diabetic diet. Annual eye exams. Continue with following with endocrinology (4) Calcium pyrophosphate deposition disease (CPPD): Code(s): M11.20 - Other chondrocalcinosis, unspecified site Category: Medical Plan: With mild osteoarthritis. No improvement with cortisone injection, advised to limit the use of cortisone if possible due to hyperglycemia. Recommend requesting/enquiring about gel injections.. Trial colchicine. Can follow-up with Orthopedic surgery (5) Dermatitis, unspecified: Code(s): L30.9 - Dermatitis, unspecified Category: Medical Plan: Etiology unclear. Question autoimmune/inflammatory response. Trial fexofenadine 180 mg twice daily. She is referred to Dermatology. She will also continue with her allergy injections. (6) Fatigue: Code(s): R53.83 - Other fatigue Category: Medical Plan: Continue maintaining sleep-wake cycle. Will check CBC, vitamin B12. Reviewed additional labs. Thyroid is within normal limits. Liver function does remain elevated, we will check ultrasound. Discussed that hyperglycemia can also result in fatigue and she will continue working on glucose management with endocrinology as well as medications as prescribed. Plan Follow-up in the office in 4 months, labs to be completed prior to visit. Insurance will be covering a different glucometer and supplies after the new year and these are ordered. Influenza vaccine administered Orders: Orders Complete Blood Count Auto Diff Today R53.83 - Other fatigue US abdomen limited Today R74.8 - Abnormal levels of other serum enzymes Basic Metabolic Panel 4 Months E03.9 - Hypothyroidism, unspecified, E11.65 - Type 2 diabetes mellitus with hyperglycemia, E78.00 - Pure hypercholesterolemia, unspecified Liver Panel 4 Months E03.9 - Hypothyroidism, unspecified, E11.65 - Type 2 diabetes mellitus with hyperglycemia, E78.00 - Pure hypercholesterolemia, unspecified Microalbumin, Random (w Creat) 4 Months E03.9 - Hypothyroidism, unspecified, E11.65 - Type 2 diabetes mellitus with hyperglycemia, E78.00 - Pure hypercholesterolemia, unspecified Influenza [id number] Immunization Today Z23 - Encounter for immunization Vitamin B12 and Folate Today R53.83 - Other fatigue Hemoglobin A1c 4 Months E03.9 - Hypothyroidism, unspecified, E11.65 - Type 2 diabetes mellitus with hyperglycemia, E78.00 - Pure hypercholesterolemia, unspecified Lipid Panel 4 Months E03.9 - Hypothyroidism, unspecified, E11.65 - Type 2 diabetes mellitus with hyperglycemia, E78.00 - Pure hypercholesterolemia, unspecified TSH reflex Free T4 4 Months E03.9 - Hypothyroidism, unspecified, E11.65 - Type 2 diabetes mellitus with hyperglycemia, E78.00 - Pure hypercholesterolemia, unspecified Medications: New 2 fexofenadine 180 mg PO BID 180 tabs 1RF blood sugar diagnostic (Accu-Chek Guide test strips) As directed. Check glucose levels 4 times daily 100 ea 1RF blood-glucose meter (Accu-Chek Guide Me Glucose Meter) As directed. Check glucose levels 4 times daily 1 ea 0RF lancets (Accu-Chek Safe-T-Pro Plus) As directed. Check glucose levels 4 times daily 200 ea 0RF Changed From pen needle, diabetic As directed 3X DAILY. 120 ea 0RF E11.65 - Type 2 diabetes mellitus with hyperglycemia To pen needle, diabetic As directed 4X DAILY. 120 ea 0RF E11.65 - Type 2 diabetes mellitus with hyperglycemia Discontinued triamcinolone acetonide 0.1% Discontinued Reason: Doctor's Order 1 appl topical BID PRN 30 grams 2RF rash
== END 2025-07-17 10:59 | disposition home or self-care (01) ==
LOC: HO.HMCHD 10:17
PROVIDERS: PCP Physician Assistant; Visit Provider Physician Assistant
DX: E03.9 Hypothyroidism, unspecified (principal); E78.00 Pure hypercholesterolemia, unspecified; E11.65 Type 2 diabetes mellitus with hyperglycemia; M11.20 Other chondrocalcinosis, unspecified site; L30.9 Dermatitis, unspecified; R53.83 Other fatigue; Z23 Encounter for immunization

== ENCOUNTER → 2025-07-17 10:16 | Outpatient (BNVA) | payer BC, SELFPAY | PROVIDERS: PCP Physician Assistant; Visit Provider Physician Assistant | DX: E03.9 Hypothyroidism, unspecified (principal); Z23 Encounter for immunization; E78.00 Pure hypercholesterolemia, unspecified; E11.65 Type 2 diabetes mellitus with hyperglycemia; M11.261 Other chondrocalcinosis, right knee; L30.9 Dermatitis, unspecified; R53.83 Other fatigue; Z79.899 Other long term (current) drug therapy; Z13.31 Encounter for screening for depression; Z13.39 Encounter for screening examination for other mental health and behavioral disorders | CPT/HCPCS: 90471; 90656; 96127 ==